=== PATIENT | female | born 1985 | race African-American/Black ===

== ENCOUNTER 2023-12-31 15:18 | Emergency (ER) | payer OTHER, SELFPAY ==
--- NOTE | ~2023-12-31 | XR_ITS ---
EXAMINATION: XR CHEST CLINICAL INFORMATION: Shortness of breath COMPARISON: None available. TECHNIQUE: Frontal view of the chest was obtained. FINDINGS: The cardiomediastinal silhouette is within normal limits. The lungs are well expanded. There is no focal consolidation, edema, or effusion. No pneumothorax. No acute osseous abnormality. XR/XR chest 1V IMPRESSION: No evidence of acute pulmonary process.
[2023-12-31 15:51] VITALS: BP 147/96; PULSE 76; RESP 22; TEMP 35.9; O2SAT 98; BMI 43.8
--- NOTE | 2023-12-31 15:51 | ED_ITS ---
HPI - General Adult General Chief complaint: Dyspnea Stated complaint: asthma diff breathing Time Seen by Provider: 12/31/23 16:16 Source: patient Mode of arrival: ambulatory Limitations: no limitations History of Present Illness HPI narrative: Patient is a 38-year-old female with history of asthma presenting to the emergency department with complaint of worsening shortness of breath over the past few days but acutely worsened over the past few hours. She states that she is currently out of her asthma inhalers and is almost out of her nebulized albuterol. Feel symptoms are likely related to seasonal allergies. She denies fevers. Denies chest pain or palpitations. MD complaint: Shortness of breath Onset (ago): day(s) Associated symptoms: denies other symptoms Treatments prior to arrival: other Related Data Previous Rx's ?Medication ?Instructions ?Recorded albuterol sulfate 2.5 mg/3 mL 2.5 mg (3 mL) inhalation Q4H PRN 12/31/23 (0.083 %) solution for nebulization shortness of breath or wheezing #75 mL albuterol sulfate 90 mcg/actuation 2 inh inhalation Q4-6H PRN 12/31/23 aerosol inhaler shortness of breath or wheezing #6.7 grams prednisone 20 mg tablet 40 mg (2 x 20 mg) PO DAILY #10 tabs 12/31/23 Allergies Allergy/AdvReac Type Severity Reaction Status Date / Time morphine Allergy Itching Verified 12/31/23 15:56 Review of Systems 2 Review of Systems: As per HPI. Yes all other systems are reviewed and are negative Constitutional: Constitutional: Reports as per HPI [facility] Social History Social History Advance Directives: No Advance Directives Information Provided: No Do you have a plan to hurt others: No Plan Physical Exam ED Vital Signs: Vital Signs - 24 hr 12/31/23 15:51 12/31/23 16:20 Temperature 96.7 F L Pulse Rate 76 72 Respiratory Rate 22 H 18 Blood Pressure 147/96 H Pulse Oximetry 98 Oxygen Delivery Method Room Air BMI result Body Mass Index 43.8 Vital signs have been reviewed and appear to be correct. Blood pressure elevated. Heart rate normal. Respiratory rate normal. Temperature normal. Oxygen saturation normal. Const General: cooperative, healthy appearing and no acute distress Orientation/consciousness: oriented to person, oriented to place, oriented to time and patient oriented x3 Limitations: no limitations HENMT Head: Yes normocephalic and Yes atraumatic Ears: external ears normal General nose exam: Normal external nose present Face and sinus: Yes face symmetric Mouth: oropharynx normal and moist mucous membranes Throat: Yes uvula midline Eyes Pupils: Equal, round and reactive pupils present Neck Neck: Yes normal visual inspection and Yes supple Resp Effort & Inspection: normal respiratory effort and not able to speak in complete sentences Auscultation: wheezes expiratory wheezes and throughout and diminished lung sounds diffuse Cardio Rate: regular rate Rhythm: regular rhythm Heart sounds: S1 normal heart sound present and S2 normal heart sound present GI Palpation (GI): Soft to palpation and nontender Auscultation: normoactive bowel sounds General: Yes no CVA tenderness Back/Spine/Pelvis Back: no CVA tenderness Skin General skin exam: elasticity normal and turgor normal Neuro General: oriented to person, oriented to place, oriented to time, patient oriented x3, moves all extremities, no focal motor deficits and CN's II-XI intact bilaterally Cranial nerves: Yes Equal, round and reactive pupils present Cognition (Neuro): normal cognition Extrem General: Yes full ROM, Yes no pedal edema and Yes no calf tenderness Psych Mental Status: mental status grossly normal Affect: normal affect Thought process: Normal thought process present Course Course Course Narrative: RME performed by Ninfa Mercer PA-C. Patient is a 38 year old assigned female at presenting to the emergency department with an asthma exacerbation. Patient states she was woken up out of her sleep with shortness of breath. Patient states that she has been using her nebulizer but it isn't helping. Detailed physical exam and review of systems are deferred to the preschool special education teacher. Imaging and swabs ordered. Charge nurse made aware. Medications Administered Discontinued Medications Generic Name Dose Route Start Last Admin Trade Name Freq PRN Reason Stop Dose Admin Albuterol Sulfate 2.5 mg/ 0 mg 12/31/23 16:13 12/31/23 16:18 Albuterol/Ipratropium 3 ml INHALE 12/31/23 16:14 5 dose ONCE ONE Administration Magnesium Sulfate/Dextrose 1 gm in 100 mls @ 100 mls/hr 12/31/23 15:52 12/31/23 16:16 Magnesium Sulfate/D5w IV 12/31/23 16:51 100 mls/hr ONCE ONE Administration Methylprednisolone Sodium Succinate 60 mg 12/31/23 15:52 12/31/23 16:15 Methylprednisolone Sod Succ 125 Mg/2 Ml Vial IVPUSH 12/31/23 15:53 60 mg ONCE ONE Administration Medical Decision Making Medical Decision Making [facility] Narrative: Patient is a 38-year-old female with history of asthma presenting to the emergency department with complaint of worsening shortness of breath over the past few days but acutely worsened over the past few hours. On exam patient is awake, A+Ox3, BP elevated, VS otherwise WNL, afebrile, normal neurological exam without focal deficits, physical exam findings as above. Given reported symptoms and physical exam findings, initial differential includes asthma exacerbation, viral illness, bronchitis, pneumonia. Labs notable for mild leukocytosis, no significant electrolyte abnormalities. X-ray chest notable for no evidence of pneumonia. My interpretation is in agreement with the radiologist's interpretation. Symptoms improved significantly after medications given in ED and breathing treatment administered by Respiratory therapy. Patient states she feels comfortable with discharge home at this time, feel patient is stable for discharge as her room air saturation is now 100% and she is able to speak easily in full sentences. Will send prescriptions for inhalers, prednisone, and advised patient to begin taking daily allergy medication such as cetirizine to decrease allergy symptoms. Instructed patient follow-up with primary care provider. Return precautions discussed at bedside. Patient verbalized understanding of and agreement plan. Differential Diagnosis Differential Diagnoses: The differential diagnosis associated with the presentation includes As per [facility]. Admission/Observation Consideration of admission/observation: Escalation of care including admission/observation considered Patient would have been admitted to the hospital had their work up had any findings where hospital admission was appropriate and their clinical presentation warranted hospital admission. Lab Data [facility] Lab Attestation statement: I reviewed the patient's lab results. As per MDM. 12/31/23 16:13 12/31/23 16:13 Labs: Lab Results 12/31/23 12/31/23 Range/Units 16:08 16:13 WBC 11.2 H (4.8-10.8) X10*3/uL RBC 4.81 (4.20-5.50) X10*6/uL Hgb 11.4 L (12.0-16.0) g/dl Hct 35.4 L (37.0-47.0) % MCV 73.6 L (80.0-98.0) fL MCH 23.7 L (27.0-33.0) pg MCHC 32.2 (31.0-35.0) g/dl RDW 16.4 H (11.0-16.0) % Plt Count 414 H (160-400) X10*3/uL MPV 8.5 L (9.4-12.3) fL Immature Gran % (Auto) 0.4 (0.0-0.4) % Neut % (Auto) 49.2 (45-73) % Lymph % (Auto) 38.1 (20-40) % [place] % (Auto) 6.2 (2-11) % Eos % (Auto) 5.7 H (0-4) % Baso % (Auto) 0.4 (0-2) % Lymph # (Auto) 4.3 (1.2-4.9) X10*3/uL [place] # (Auto) 0.7 (0.1-1.2) X10*3/uL Eos # (Auto) 0.6 H (0.0-0.4) X10*3/uL Baso # (Auto) 0.0 (0.0-0.2) X10*3/uL Abs Immat Gran (auto) 0.05 H (0.00-0.03) X10*3/uL Absolute Neuts (auto) 5.5 (2.0-8.3) x10*3/uL Absolute Nucleated RBC 0.000 (0.0-0.012) X10*3/uL Nucleated RBC % (auto) 0.0 (0.0-0.2) /100WBC Sodium 140 (135-145) mmol/L Potassium 4.2 (3.3-5.1) mmol/L Chloride 107 (96-108) mmol/L Carbon Dioxide 24 (22-29) mmol/L Anion Gap 13 (12-20) BUN 7 L (9-16) mg/dL Creatinine 0.78 (0.5-1.4) mg/dL Estim Creat Clear Calc 135.4 Estimated GFR > 60 Random Glucose 131 H (60-115) mg/dL Calcium 9.8 (8.4-10.2) mg/dL Magnesium 2.0 (1.6-2.6) mg/dL Total Bilirubin 0.2 (0.0-1.0) mg/dL AST 17 (5-31) U/L ALT 22 (0-31) U/L Alkaline Phosphatase 90 (39-117) U/L Total Protein 7.6 (6.5-8.0) g/dL Albumin 4.3 (3.5-5.0) g/dL Influenza Type A (PCR) NEGATIVE (Negative) Influenza Type B (PCR) NEGATIVE (Negative) RSV RNA Qual (PCR) NEGATIVE (Negative) SARS-CoV-2 RNA (RT-PCR) NEGATIVE (Negative) Independent Interpretation I performed an independent interpretation of an: Plain X-Ray Interpretation: No evidence of pneumonia on chest x-ray. Radiology Impression Discussion of test interpretation with radiology: I have reviewed the radiologist's reading. Radiologist Impression: XR/XR chest 1V IMPRESSION: No evidence of acute pulmonary process. External Record Review External record reviewed: Inpatient record, Office record and Outpatient record Prescription Management I considered prescription management with: Other Discharge Plan Discharge Clinical Impression: Asthma with exacerbation Patient Disposition: Home, Self-Care Instructions: Asthma (DC) Additional Instructions: You were evaluated in the emergency department today for shortness of breath. Your symptoms appear to be due to an acute asthma exacerbation. It is possible that this is being triggered by seasonal allergies and we recommend that he begin taking an ufuq-exf-oqmpiaz allergy medication such as cetirizine or loratadine daily. You are being given refills of your inhaler and albuterol for your nebulizer. You are also being prescribed a short course of prednisone to decrease inflammation. We recommend following up with your primary care provider within the next 2-3 days. Return to the emergency department or call 911 if you develop increasing shortness of breath or difficulty breathing, chest pain, dizziness or lightheadedness or any other concerning symptoms. Prescriptions: New prednisone 20 mg tablet 40 mg PO DAILY Qty: 10 0RF albuterol sulfate 90 mcg/actuation HFA aerosol inhaler 2 inh inhalation Q4-6H PRN (Reason: shortness of breath or wheezing) Qty: 6.7 0RF albuterol sulfate 2.5 mg /3 mL (0.083 %) solution for nebulization 2.5 mg inhalation Q4H PRN (Reason: shortness of breath or wheezing) Qty: 75 0RF Stand Alone Forms: Work/School Release Print Language: Hebrew
[2023-12-31] MEDS: methylPREDNISolone Sod Succ 125 MG/2 ML VIAL 60 MG IVPUSH (16:15)
[2023-12-31] MEDS: Magnesium Sulfate/D5W 1 GM/100 ML PIGGYBACK IV (16:16)
[2023-12-31] MEDS: Albuterol Sulfate 2.5 MG, Albuterol/Iprat 2.5/0.5MG 3 ML 3 ML INHALE (16:18)
[2023-12-31 16:19] LABS: MANUAL DIFF FLAG NO
[2023-12-31 16:20] VITALS: PULSE 72; RESP 18; O2SAT 100
[2023-12-31 16:21] LABS: Basophils Percent Auto 0.4 % (0-2); Eosinophils Absolute Auto 0.6 X10*3/uL (0.0-0.4); Eosinophils Percent Auto 5.7 % (0-4); Hematocrit 35.4 % (37.0-47.0); Hemoglobin 11.4 g/dl (12.0-16.0); Imm Gran Abs Auto 0.05 X10*3/uL (0.00-0.03); Imm Gran Pct Auto 0.4 % (0.0-0.4); Lymphocytes Absolute Auto 4.3 X10*3/uL (1.2-4.9); Lymphocytes Percent Auto 38.1 % (20-40); Mean Corpuscular HGB Conc 32.2 g/dl (31.0-35.0); Mean Corpuscular Hemoglobin 23.7 pg (27.0-33.0); Mean Corpuscular Volume 73.6 fL (80.0-98.0); Mean Platelet Volume 8.5 fL (9.4-12.3); Monocytes Absolute Auto 0.7 X10*3/uL (0.1-1.2); Monocytes Percent Auto 6.2 % (2-11); Neutrophils Absolute Auto 5.5 x10*3/uL (2.0-8.3); Neutrophils Percent Auto 49.2 % (45-73); Platelet Count 414 X10*3/uL (160-400); Red Blood Count 4.81 X10*6/uL (4.20-5.50); Red Cell Distribution Width 16.4 % (11.0-16.0); White Blood Count 11.2 X10*3/uL (4.8-10.8)
[2023-12-31 16:35] LABS: Alanine Aminotransferase 22 U/L (0-31); Albumin Level 4.3 g/dL (3.5-5.0); Alkaline Phosphatase 90 U/L (39-117); Anion Gap 13 (12-20); Aspartate Amino Transferase 17 U/L (5-31); Bilirubin Total 0.2 mg/dL (0.0-1.0); Blood Urea Nitrogen 7 mg/dL (9-16); Calcium 9.8 mg/dL (8.4-10.2); Carbon Dioxide 24 mmol/L (22-29); Chloride 107 mmol/L (96-108); Creatinine Clr Calc Pharmacy 135.4; Estimated Glomerular Filt Rate > 60; Glucose Random 131 mg/dL (60-115); Potassium 4.2 mmol/L (3.3-5.1); Sodium 140 mmol/L (135-145); Total Protein 7.6 g/dL (6.5-8.0)
[2023-12-31 17:01] LABS: Influenza A PCR NEGATIVE (Negative); Influenza B PCR NEGATIVE (Negative); Resp Syncy Virus RNA Qual PCR NEGATIVE (Negative); SARS COV2 PCR INHOUSE NEGATIVE (Negative)
[2023-12-31 18:09] VITALS: BP 138/95; PULSE 70; RESP 18; TEMP 36.7; O2SAT 100
== END 2023-12-31 18:10 | disposition home or self-care (01) ==
PROVIDERS: Physician Assistant Medical; Emergency Provider Emergency Medicine
DX: J45.901 Unspecified asthma with (acute) exacerbation (principal)
CPT/HCPCS: 0241U; 36415; 71045; 80053; 83735; 85025; 94640; 96374; 96375; 99283; 99284; J2919; J3475

== ENCOUNTER 2024-01-22 02:10 | Emergency (ER) | payer OTHER, SELFPAY ==
--- NOTE | ~2024-01-22 | XR_ITS ---
EXAMINATION: XR CHEST CLINICAL INFORMATION: Shortness of breath COMPARISON: 12/31/2023 TECHNIQUE: Frontal view of the chest was obtained. FINDINGS: Lung volumes are symmetric. There is central peribronchial thickening, increased from prior. No evidence of pneumothorax or significant pleural effusion. The cardiomediastinal contour is unremarkable. No acute osseous findings are seen. XR/XR chest 1V IMPRESSION: Central peribronchial thickening which may reflect airways disease/bronchitis.
[2024-01-22 02:14] VITALS: BP 151/97; PULSE 81; RESP 22; TEMP 35.7; O2SAT 97; BMI 44.2
[2024-01-22 02:38] LABS: Basophils Percent Auto 0.3 % (0-2); Eosinophils Absolute Auto 0.8 X10*3/uL (0.0-0.4); Eosinophils Percent Auto 6.7 % (0-4); Hematocrit 34.5 % (37.0-47.0); Hemoglobin 11.1 g/dl (12.0-16.0); Imm Gran Abs Auto 0.03 X10*3/uL (0.00-0.03); Imm Gran Pct Auto 0.3 % (0.0-0.4); Lymphocytes Absolute Auto 5.3 X10*3/uL (1.2-4.9); Lymphocytes Percent Auto 44.3 % (20-40); MANUAL DIFF FLAG SCAN; Mean Corpuscular HGB Conc 32.2 g/dl (31.0-35.0); Mean Corpuscular Hemoglobin 23.6 pg (27.0-33.0); Mean Corpuscular Volume 73.2 fL (80.0-98.0); Mean Platelet Volume 8.5 fL (9.4-12.3); Monocytes Absolute Auto 0.6 X10*3/uL (0.1-1.2); Monocytes Percent Auto 5.2 % (2-11); Neutrophils Absolute Auto 5.2 x10*3/uL (2.0-8.3); Neutrophils Percent Auto 43.2 % (45-73); Platelet Count 322 X10*3/uL (160-400); Red Blood Count 4.71 X10*6/uL (4.20-5.50); Red Cell Distribution Width 16.7 % (11.0-16.0); SCAN SMEAR FLAG 1; White Blood Count 11.9 X10*3/uL (4.8-10.8)
[2024-01-22 02:55] LABS: Anion Gap 14 (12-20); Blood Urea Nitrogen 13 mg/dL (9-16); Calcium 9.3 mg/dL (8.4-10.2); Carbon Dioxide 23 mmol/L (22-29); Chloride 106 mmol/L (96-108); Creatinine Clr Calc Pharmacy 109.2; Estimated Glomerular Filt Rate > 60; Glucose Random 202 mg/dL (60-115); Potassium 3.8 mmol/L (3.3-5.1); Sodium 139 mmol/L (135-145)
[2024-01-22 03:04] LABS: SLIDE REVIEW VERIFIED
--- NOTE | 2024-01-22 03:24 | ED_ITS ---
HPI - Asthma General Chief Complaint: Asthma Stated Complaint: Trouble breathing, asthmatic Time Seen by Provider: 01/22/24 03:10 History of Present Illness HPI Narrative: Patient is a 30-year-old female with a history of asthma presents today with shortness of breath wheezing. Patient from home. After the steroid tapers off patient's started having shortness of breath again. Positive history of smoking. Positive coughing. Patient from home. Never been intubated. Been admitted in the past Related Data Previous Rx's ?Medication ?Instructions ?Recorded albuterol sulfate 2.5 mg/3 mL 2.5 mg (3 mL) inhalation Q4H PRN 12/31/23 (0.083 %) solution for nebulization shortness of breath or wheezing #75 mL albuterol sulfate 90 mcg/actuation 2 inh inhalation Q4-6H PRN 12/31/23 aerosol inhaler shortness of breath or wheezing #6.7 grams prednisone 20 mg tablet 40 mg (2 x 20 mg) PO DAILY #10 tabs 12/31/23 albuterol sulfate 2.5 mg/3 mL 2.5 mg (3 mL) inhalation Q3-4H PRN 01/22/24 (0.083 %) solution for nebulization bronchospasm #90 mL prednisone 20 mg tablet 40 mg (2 x 20 mg) PO DAILY #10 tabs 01/22/24 Allergies Allergy/AdvReac Type Severity Reaction Status Date / Time morphine Allergy Itching Verified 01/22/24 02:16 Review of Systems 2 Review of Systems: Positive coughing positive shortness of breath Yes all other systems are reviewed and are negative [facility] Past Medical History Attestation statement: The following information was validated with the patient. Social History Social History Advance Directives: No Do you have a plan to hurt others: No Plan Physical Exam 2 Vital Signs: Vital Signs: Last Vital Signs Temp 96.3 F L 01/22/24 02:14 Pulse 83 01/22/24 03:34 Resp 18 01/22/24 03:34 BP 151/97 H 01/22/24 02:14 Pulse Ox 97 01/22/24 02:14 O2 Del Method Room Air 01/22/24 02:14 BMI result Body Mass Index 44.2 Appearance: Alert. Oriented X3. No acute distress. Eyes: Pupils equal, round and reactive to light. ENT: Pharynx normal. Neck: Normal inspection. Neck supple. No lymph nodes noted. No crepitus CVS: Normal heart rate and rhythm. Pulses normal. Normal S1 and S2 Respiratory: Positive bilateral wheezing noted Abdomen: Soft and nontender. No rigidity. No distention. good BS x4 Skin: Skin warm and dry. Normal skin color. Normal skin turgor. Extremities: No lower extremity edema. Neurovascular intact to all extremities. No Lacerations. No Rash Neuro: Oriented X 3. No motor deficit. No sensory deficit. Moving all extermities. No slurred speech Medications Administered Discontinued Medications Generic Name Dose Route Start Last Admin Trade Name Freq PRN Reason Stop Dose Admin Albuterol Sulfate 2.5 mg/ 0 mg 01/22/24 03:20 01/22/24 03:31 Albuterol/Ipratropium 3 ml INHALE 01/22/24 03:21 5 dose ONCE ONE Administration Prednisone 60 mg 01/22/24 03:18 01/22/24 03:38 Prednisone 20 Mg Tablet PO 01/22/24 03:19 60 mg ONCE ONE Administration Medical Decision Making Medical Decision Making [facility] Narrative: Patient is 38 years old presents today with having shortness of breath. Previously hospitalized in the past. Recently finished a steroid. Now feeling wheezing again. Patient was given steroid and a continuous nebulized treatment. Symptomatically feels much improved. Fell asleep. Patient monitored for an hour. Subsequently ambulated in the emergency department O2 sat maintained at 98. Lungs are much improved. Had a long discussion with patient joint decision was made to discharge patient home close follow-up on an outpatient basis explained to patient earlier to stop smoking patient states understanding she is currently in stable condition will discharge home. Differential Diagnosis Differential Diagnoses: The differential diagnosis associated with the presentation includes Asthma Admission/Observation Consideration of admission/observation: Escalation of care including admission/observation considered Lab Data [facility] Lab Attestation statement: I reviewed the patient's lab results. 01/22/24 02:33 01/22/24 02:33 Labs: Lab Results 01/22/24 01/22/24 Range/Units 02:33 03:41 WBC 11.9 H (4.8-10.8) X10*3/uL RBC 4.71 (4.20-5.50) X10*6/uL Hgb 11.1 L (12.0-16.0) g/dl Hct 34.5 L (37.0-47.0) % MCV 73.2 L (80.0-98.0) fL MCH 23.6 L (27.0-33.0) pg MCHC 32.2 (31.0-35.0) g/dl RDW 16.7 H (11.0-16.0) % Plt Count 322 (160-400) X10*3/uL MPV 8.5 L (9.4-12.3) fL Immature Gran % (Auto) 0.3 (0.0-0.4) % Neut % (Auto) 43.2 L (45-73) % Lymph % (Auto) 44.3 H (20-40) % [place] % (Auto) 5.2 (2-11) % Eos % (Auto) 6.7 H (0-4) % Baso % (Auto) 0.3 (0-2) % Lymph # (Auto) 5.3 H (1.2-4.9) X10*3/uL [place] # (Auto) 0.6 (0.1-1.2) X10*3/uL Eos # (Auto) 0.8 H (0.0-0.4) X10*3/uL Baso # (Auto) 0.0 (0.0-0.2) X10*3/uL Abs Immat Gran (auto) 0.03 (0.00-0.03) X10*3/uL Absolute Neuts (auto) 5.2 (2.0-8.3) x10*3/uL Absolute Nucleated RBC 0.000 (0.0-0.012) X10*3/uL Nucleated RBC % (auto) 0.0 (0.0-0.2) /100WBC Smear Tech's Comments VERIFIED Sodium 139 (135-145) mmol/L Potassium 3.8 (3.3-5.1) mmol/L Chloride 106 (96-108) mmol/L Carbon Dioxide 23 (22-29) mmol/L Anion Gap 14 (12-20) BUN 13 (9-16) mg/dL Creatinine 0.94 (0.5-1.4) mg/dL Estim Creat Clear Calc 109.2 Estimated GFR > 60 Random Glucose 202 H (60-115) mg/dL Calcium 9.3 (8.4-10.2) mg/dL Influenza Type A (PCR) NEGATIVE (Negative) Influenza Type B (PCR) NEGATIVE (Negative) RSV RNA Qual (PCR) NEGATIVE (Negative) SARS-CoV-2 RNA (RT-PCR) NEGATIVE (Negative) Independent Interpretation I performed an independent interpretation of an: EKG and Plain X-Ray (Grossly negative for any acute infiltrate) Radiology Impression Discussion of test interpretation with radiology: I have reviewed the radiologist's reading. Social Determinants History of smoking Discharge Plan Discharge Clinical Impression: Asthma with acute exacerbation Patient Disposition: Home, Self-Care Instructions: Asthma (DC) Prescriptions: New prednisone 20 mg tablet 40 mg PO DAILY Qty: 10 0RF albuterol sulfate 2.5 mg /3 mL (0.083 %) solution for nebulization 2.5 mg inhalation Q3-4H PRN (Reason: bronchospasm) Qty: 90 0RF No Action prednisone 20 mg tablet 40 mg PO DAILY Qty: 10 0RF albuterol sulfate 90 mcg/actuation HFA aerosol inhaler 2 inh inhalation Q4-6H PRN (Reason: shortness of breath or wheezing) Qty: 6.7 0RF albuterol sulfate 2.5 mg /3 mL (0.083 %) solution for nebulization 2.5 mg inhalation Q4H PRN (Reason: shortness of breath or wheezing) Qty: 75 0RF Referrals: Kate Davis DO [Primary Care Provider] - 2 days Print Language: Nigerien
--- NOTE | 2024-01-22 03:25 | PC.NURSE ---
pt presents to the ED from home d/t asthma exacerbation. hx asthma. pt recently seen in ED/prescribed take home meds. pt has had relief from meds upon until today when she started feeling increased/sob. wheezing noted throughout. on RA - sob/wob noted. respirations even/labored. xray results pending. plan of care ongoing.
[2024-01-22] MEDS: Albuterol Sulfate 2.5 MG, Albuterol/Iprat 2.5/0.5MG 3 ML 3 ML INHALE (03:31)
[2024-01-22 03:34] VITALS: PULSE 83; RESP 18; O2SAT 98
[2024-01-22] MEDS: predniSONE 20 MG TABLET 60 MG PO (03:38)
--- NOTE | 2024-01-22 03:39 | PC.NURSE ---
medication administered per provider order. pt receiving breathing treatment via RT at this time. swabs obtained by [employer].
[2024-01-22 04:22] LABS: Influenza A PCR NEGATIVE (Negative); Influenza B PCR NEGATIVE (Negative); Resp Syncy Virus RNA Qual PCR NEGATIVE (Negative); SARS COV2 PCR INHOUSE NEGATIVE (Negative)
[2024-01-22 05:46] VITALS: BP 135/87; PULSE 83; RESP 16; TEMP 36.7; O2SAT 95
[2024-01-22 05:48] VITALS: BP 135/87; PULSE 83; RESP 16; TEMP 36.7; O2SAT 95
== END 2024-01-22 05:49 | disposition home or self-care (01) ==
PROVIDERS: Emergency Provider Emergency Medicine Emergency Medical Services; PCP Internal Medicine
DX: R06.02 Shortness of breath (principal); R05.9 Cough, unspecified; Z03.818 Encounter for observation for suspected exposure to other biological agents ruled out; Z79.899 Other long term (current) drug therapy
CPT/HCPCS: 0241U; 36415; 71045; 80048; 85025; 94640; 99283; 99284

== ENCOUNTER 2024-02-04 21:27 | Emergency (ER) | payer OTHER, SELFPAY ==
--- NOTE | ~2024-02-04 | XR_ITS ---
EXAMINATION: XR CHEST CLINICAL INFORMATION: Shortness of breath. Cough. Asthma. COMPARISON: Chest x-ray January 22, 2024 TECHNIQUE: Frontal view of the chest was obtained. 9:45 PM FINDINGS: No significant abnormality is noted involving the heart, lungs, mediastinum, bony thorax or soft tissues. XR/XR chest 1V IMPRESSION: Unremarkable examination.
[2024-02-04 21:35] VITALS: BP 151/101; PULSE 86; RESP 20; TEMP 36.3; O2SAT 93; BMI 45.2
--- NOTE | 2024-02-04 21:39 | ECG_ITS ---
Test Reason : DSYSPNEA Blood Pressure : / mmHG Vent. Rate : 080 BPM Atrial Rate : 080 BPM P-R Int : 150 ms QRS Dur : 080 ms QT Int : 368 ms P-R-T Axes : 070 065 138 degrees QTc Int : 424 ms Normal sinus rhythm T wave abnormality, consider anterolateral ischemia Abnormal ECG No previous ECGs available Referred By: Generic ED Physician Electronically Signed By:Gianni Liang
--- NOTE | 2024-02-04 22:08 | ED_ITS ---
HPI - SOB/Dyspnea General Chief Complaint: Dyspnea Stated Complaint: asthma, trouble breathing Time Seen by Provider: 02/04/24 21:49 Source: patient Mode of arrival: ambulatory Limitations: no limitations History of Present Illness HPI Narrative: Patient is a 38-year-old female presents to the emergency department for evaluation of increasing shortness of breath. She reports over the past 2 weeks having recurrent asthma exacerbations. Prior to this she was only using albuterol rescue inhaler as needed. She states that she did a 5 day course of prednisone, felt better for a few days and then her symptoms returned. She was seen in this emergency department most recently 01/22/2024, again given a 5 day course of prednisone 40 mg daily, had improvement in symptoms for a few days before returning again. She endorses a dry nonproductive cough, tightness in her chest, orthopnea. She has trialed her home inhalers and nebulizers with only minimal improvement. She states that in the past she has benefitted from a longer taper from prednisone over a 2 week period. She does state that in June of last year she was diagnosed with new onset diabetes for which she is only taking metformin, she does not have the means to check her glucose levels at home. She denies fevers, chills, known sick contacts, neck pain, numbness or tingling of the extremities, lower extremity redness swelling or edema, personal history of DVT/PE. Related Data Previous Rx's ?Medication ?Instructions ?Recorded albuterol sulfate 2.5 mg/3 mL 2.5 mg (3 mL) inhalation Q4H PRN 12/31/23 (0.083 %) solution for nebulization shortness of breath or wheezing #75 mL albuterol sulfate 90 mcg/actuation 2 inh inhalation Q4-6H PRN 12/31/23 aerosol inhaler shortness of breath or wheezing #6.7 grams prednisone 20 mg tablet 40 mg (2 x 20 mg) PO DAILY #10 tabs 12/31/23 albuterol sulfate 2.5 mg/3 mL 2.5 mg (3 mL) inhalation Q3-4H PRN 01/22/24 (0.083 %) solution for nebulization bronchospasm #90 mL prednisone 20 mg tablet 40 mg (2 x 20 mg) PO DAILY #10 tabs 01/22/24 albuterol sulfate 2.5 mg/3 mL 2.5 mg (3 mL) inhalation Q4-6H PRN 02/04/24 (0.083 %) solution for nebulization shortness of breath or wheezing #180 mL fluticasone 100 mcg-salmeterol 50 1 inh inhalation BID #60 ea 02/04/24 mcg/dose blistr powdr for inhalation (Advair Diskus) Allergies Allergy/AdvReac Type Severity Reaction Status Date / Time morphine Allergy Itching Verified 02/04/24 21:37 Review of Systems 2 Review of Systems: Yes all other systems are reviewed and are negative [facility] Past Medical History Attestation statement: The following information was validated with the patient. Source: old records reviewed Social History Social History Advance Directives: No Advance Directives Information Provided: No Do you have a plan to hurt others: No Plan Physical Exam 2 Vital Signs: Vital Signs: Last Vital Signs Temp 97.3 F 02/04/24 21:35 Pulse 85 02/04/24 22:17 Resp 20 02/04/24 22:17 BP 151/101 H 02/04/24 21:35 Pulse Ox 93 02/04/24 21:35 O2 Del Method Room Air 02/04/24 21:35 BMI result Body Mass Index 45.2 Appearance: Alert.?Oriented to person, place and time. No acute distress.?Normal affect. Eyes: Pupils equal, round and reactive to light.? ENT: Pharynx normal.?? Neck: Normal inspection.? Neck supple.?? CVS: Heart sounds normal. Normal heart rate and rhythm.? Pulses normal.?? Respiratory: No respiratory distress.? Lung sounds with expiratory wheezing bilaterally Abdomen: Soft and non-tender. Normoactive bowel sounds. ? Skin: Skin warm and dry.? Normal skin color.? ?? Extremities: No lower extremity edema.? No calf ttp? Neuro: Moves all extremities spontaneously. Sensation intact bilaterally. Ambulates with normal steady gait. Course Reevaluation(s) Reevaluation #1: Patient reports improvement in symptoms after receiving DuoNeb updraft. On evaluation of her workup, I do note that she has T-wave inversions in anterolateral leads, no prior EKGs available for comparison, high sensitive troponin is below detectable limits in her chest pressure has been present for greater than 3 hours, I do not suspect that this is secondary to acute myocardial ischemia but rather respiratory status. Wells score is negative, unlikely pulmonary embolism. Discussed with patient, do not feel that she would be an ideal candidate for additional prednisone prescription particularly a prolonged 2 week course given her hyperglycemia and inability to monitor blood glucose at home, furthermore she has trialed to steroid courses which have not fully resolved her symptoms. At this time, I feel it most appropriate to start her on inhaled glucocorticoid and LABA; Advair. Patient was encouraged that she should follow-up with her primary care doctor, as she is requesting consultation with pulmonology, her PCP is through [facility]. At this time, she is speaking clear full sentences, no respiratory distress. Ambulatory O2 trial . I feel that she is stable for discharge home. Discussed worrisome signs and symptoms that would warrant re-evaluation in the emergency department. All questions answered. Medications Administered Discontinued Medications Generic Name Dose Route Start Last Admin Trade Name Freq PRN Reason Stop Dose Admin Albuterol Sulfate 2.5 mg/ 0 mg 02/04/24 22:14 02/04/24 22:17 Albuterol/Ipratropium 3 ml INHALE 02/04/24 22:15 5 dose ONCE ONE Administration Medical Decision Making Medical Decision Making [facility] Narrative: Patient is a 38-year-old female past medical history of asthma, type 2 diabetes, obesity presenting to emergency department for evaluation of recurrent concern for asthma exacerbation with shortness of breath and chest tightness. Overall she appears well, nontoxic, afebrile. She is without significant respiratory distress tachypnea, she arrived with room air O2 saturation 93%. Expiratory wheezing on evaluation. She received DuoNeb updraft with reported improvement in her symptoms. CXR today is without acute pathology no evidence infiltrate or consolidation. EKG revealing normal sinus rhythm with ventricular rate of 80, QTC 424, no ST elevation, no ST depression, T-wave inversion V3-V6, no prior EKG available for comparison, high sensitive troponin below detectable levels. CBC reveals a mild leukocytosis without left shift strict him or trauma was not given microcytic anemia does not meet transfusion criteria. VBG normal. No electrolyte derangement. No RICKY. Non-anion gap hyperglycemia of 256 Differential Diagnosis Differential Diagnoses: The differential diagnosis associated with the presentation includes (Asthma exacerbation, viral syndrome, ACS, PE) Admission/Observation Consideration of admission/observation: Escalation of care including admission/observation considered Lab Data [facility] Lab Attestation statement: I reviewed the patient's lab results. (See narrative above) 02/04/24 22:11 02/04/24 22:11 Labs: Lab Results 02/04/24 02/04/24 Range/Units 22:11 22:17 WBC 12.9 H (4.8-10.8) X10*3/uL RBC 4.56 (4.20-5.50) X10*6/uL Hgb 10.6 L (12.0-16.0) g/dl Hct 33.3 L (37.0-47.0) % MCV 73.0 L (80.0-98.0) fL MCH 23.2 L (27.0-33.0) pg MCHC 31.8 (31.0-35.0) g/dl RDW 17.8 H (11.0-16.0) % Plt Count 337 (160-400) X10*3/uL MPV 8.7 L (9.4-12.3) fL Immature Gran % (Auto) Cancelled Neut % (Auto) Cancelled Lymph % (Auto) Cancelled [place] % (Auto) Cancelled Eos % (Auto) Cancelled Baso % (Auto) Cancelled Lymph # (Auto) Cancelled [place] # (Auto) Cancelled Eos # (Auto) Cancelled Baso # (Auto) Cancelled Abs Immat Gran (auto) Cancelled Absolute Neuts (auto) Cancelled Absolute Nucleated RBC 0.000 (0.0-0.012) X10*3/uL Nucleated RBC % (auto) 0.0 (0.0-0.2) /100WBC Neutrophils % (Manual) 48 (45-73) % Band Neutrophils % 1 L (3-5) % Lymphocytes % (Manual) 46 H (20-40) % Monocytes % (Manual) 3 (2-11) % Eosinophils % (Manual) 2 (0-4) % Abs Neuts (Manual) 6.3 (2.0-8.3) X10*3/uL Lymphocytes # (Manual) 5.9 H (1.2-4.9) X10*3/uL Monocytes # (Manual) 0.4 (0.1-1.2) X10*3/uL Eosinophils # (Manual) 0.3 (0.0-0.4) X10*3/uL Platelet Estimate NORMAL (NORMAL) Plt Morphology Comment NORMAL RBC Morphology NORMAL Smear Tech's Comments MANUAL DIFF VBG pH 7.35 (7.32-7.43) VBG pCO2 43 mmHg VBG pO2 88 mmHg VBG HCO3 24 (22-26) mmol/L VBG O2 Saturation 96.0 % VBG Base Excess -0.9 mmol/L Sodium 141 (135-145) mmol/L Potassium 3.8 (3.3-5.1) mmol/L Chloride 107 (96-108) mmol/L Carbon Dioxide 22 (22-29) mmol/L Anion Gap 16 (12-20) BUN 9 (9-16) mg/dL Creatinine 0.86 (0.5-1.4) mg/dL Estim Creat Clear Calc 120.9 Estimated GFR > 60 Random Glucose 256 H (60-115) mg/dL Calcium 9.7 (8.4-10.2) mg/dL Troponin I High Sens < 2.7 (<3.5-17.0) ng/L Independent Interpretation I performed an independent interpretation of an: Plain X-Ray (No consolidation or infiltrate) Radiology Impression Discussion of test interpretation with radiology: I have reviewed the radiologist's reading. Radiologist Impression: XR/XR chest 1V IMPRESSION: Unremarkable examination. Discharge Plan Discharge Clinical Impression: Asthma with exacerbation Patient Disposition: Home, Self-Care Instructions: Asthma (ED) Additional Instructions: As discussed, take the Advair inhaler twice daily, use your albuterol inhaler and nebulizers only as needed for shortness of breath/wheezing. Follow-up closely with your primary care provider, and discussed referral to pulmonology. Return back to emergency department any new or worsening symptoms or concerns. Prescriptions: New albuterol sulfate 2.5 mg /3 mL (0.083 %) solution for nebulization 2.5 mg inhalation Q4-6H PRN (Reason: shortness of breath or wheezing) Qty: 180 0RF fluticasone propion-salmeterol [Advair Diskus] 100-50 mcg/dose blister with device 1 inh inhalation BID Qty: 60 0RF No Action prednisone 20 mg tablet 40 mg PO DAILY Qty: 10 0RF albuterol sulfate 2.5 mg /3 mL (0.083 %) solution for nebulization 2.5 mg inhalation Q3-4H PRN (Reason: bronchospasm) Qty: 90 0RF prednisone 20 mg tablet 40 mg PO DAILY Qty: 10 0RF albuterol sulfate 90 mcg/actuation HFA aerosol inhaler 2 inh inhalation Q4-6H PRN (Reason: shortness of breath or wheezing) Qty: 6.7 0RF albuterol sulfate 2.5 mg /3 mL (0.083 %) solution for nebulization 2.5 mg inhalation Q4H PRN (Reason: shortness of breath or wheezing) Qty: 75 0RF Referrals: Kate Davis DO [Primary Care Provider] - Print Language: [place]
[2024-02-04 22:17] VITALS: PULSE 85; RESP 20; O2SAT 98
[2024-02-04] MEDS: Albuterol Sulfate 2.5 MG, Albuterol/Iprat 2.5/0.5MG 3 ML 3 ML INHALE (22:17)
[2024-02-04 22:22] LABS: Hematocrit 33.3 % (37.0-47.0); Hemoglobin 10.6 g/dl (12.0-16.0); Mean Corpuscular HGB Conc 31.8 g/dl (31.0-35.0); Mean Corpuscular Hemoglobin 23.2 pg (27.0-33.0); Mean Platelet Volume 8.7 fL (9.4-12.3); Platelet Count 337 X10*3/uL (160-400); Red Blood Count 4.56 X10*6/uL (4.20-5.50); Red Cell Distribution Width 17.8 % (11.0-16.0); White Blood Count 12.9 X10*3/uL (4.8-10.8)
[2024-02-04 22:24] LABS: VBG Base Excess -0.9 mmol/L; VBG HCO3 24 mmol/L (22-26); VBG pCO2 43 mmHg; VBG pH 7.35 (7.32-7.43); VBG pO2 88 mmHg
[2024-02-04 22:35] LABS: Anion Gap 16 (12-20); Blood Urea Nitrogen 9 mg/dL (9-16); Calcium 9.7 mg/dL (8.4-10.2); Carbon Dioxide 22 mmol/L (22-29); Chloride 107 mmol/L (96-108); Creatinine Clr Calc Pharmacy 120.9; Estimated Glomerular Filt Rate > 60; Glucose Random 256 mg/dL (60-115); Potassium 3.8 mmol/L (3.3-5.1); Sodium 141 mmol/L (135-145)
[2024-02-04 22:40] LABS: Venous Blood Gas Refer to POC result
[2024-02-04 22:43] LABS: SLIDE REVIEW MANUAL DIFF
[2024-02-04 22:45] LABS: Troponin-I High Sensitivity < 2.7 ng/L (<3.5-17.0)
[2024-02-04 22:46] LABS: Band Neutrophils Percent 1 % (3-5); Eosinophils Absolute Manual 0.3 X10*3/uL (0.0-0.4); Eosinophils Percent Manual 2 % (0-4); Lymphocytes Absolute Manual 5.9 X10*3/uL (1.2-4.9); Lymphocytes Percent Manual 46 % (20-40); Monocytes Absolute Manual 0.4 X10*3/uL (0.1-1.2); Monocytes Percent Manual 3 % (2-11); Neutrophils Absolute Manual 6.3 X10*3/uL (2.0-8.3); Neutrophils Percent Manual 48 % (45-73)
[2024-02-04 22:48] LABS: RBC Morphology NORMAL
[2024-02-04 22:49] LABS: Platelet Estimate NORMAL (NORMAL); Platelet Morphology Comment NORMAL
[2024-02-04 23:40] VITALS: BP 160/61; PULSE 80; RESP 20; TEMP 36.6; O2SAT 98
--- NOTE | 2024-02-04 23:44 | PC.NURSE ---
pt pass ambulation trial O2 96-100% room air with ambulation, no distress, no inc work of breathing./ pt able to speak full sentences with ambulation. says she feels much better
[2024-02-04 23:48] VITALS: BP 160/61; PULSE 80; RESP 20; TEMP 36.6; O2SAT 98
== END 2024-02-04 23:49 | disposition home or self-care (01) ==
PROVIDERS: Nurse Practitioner Family; Emergency Provider Internal Medicine; PCP Internal Medicine
DX: J45.901 Unspecified asthma with (acute) exacerbation (principal); R06.02 Shortness of breath
CPT/HCPCS: 36415; 71045; 80048; 82803; 84484; 85007; 85027; 93005; 94640; 99283; 99284; 99285

== ENCOUNTER → 2024-02-04 21:39 | Outpatient (BNV) | payer OTHER, SELFPAY | PROVIDERS: Emergency Provider Internal Medicine; PCP Internal Medicine; Visit Provider Internal Medicine Cardiovascular Disease | DX: R06.00 Dyspnea, unspecified (principal); R94.31 Abnormal electrocardiogram [ECG] [EKG] | CPT/HCPCS: 93010 ==

== ENCOUNTER 2024-09-06 17:17 | Emergency (ER) | payer OTHER, SELFPAY ==
[2024-09-06 18:23] VITALS: BP 153/96; PULSE 65; RESP 18; TEMP 36.7; O2SAT 100; BMI 44.6
--- NOTE | 2024-09-06 18:24 | ED_ITS ---
HPI - Ear Problem General Chief complaint: Skin/Abscess/Foreign Body Stated complaint: rt side face swollen near the ear/inside ear pain Time Seen by Provider: 09/06/24 23:19 History of Present Illness ED Provider: Viviana SUN Narrative: The patient is a 38-year-old female with a history of type 2 diabetes who says that she has had painful swelling on the right side of her face just anterior to her right ear. She thought that this began is possibly some kind of a pimple. She feels that the swelling is getting bigger and extending towards her jaw. No pain with opening her jaw. No pain with swallowing. She is very certain she is not . Related Data Previous Rx's ?Medication ?Instructions ?Recorded albuterol sulfate 2.5 mg/3 mL 2.5 mg (3 mL) inhalation Q4H PRN 12/31/23 (0.083 %) solution for nebulization shortness of breath or wheezing #75 mL albuterol sulfate 90 mcg/actuation 2 inh inhalation Q4-6H PRN 12/31/23 aerosol inhaler shortness of breath or wheezing #6.7 grams prednisone 20 mg tablet 40 mg (2 x 20 mg) PO DAILY #10 tabs 12/31/23 albuterol sulfate 2.5 mg/3 mL 2.5 mg (3 mL) inhalation Q3-4H PRN 01/22/24 (0.083 %) solution for nebulization bronchospasm #90 mL prednisone 20 mg tablet 40 mg (2 x 20 mg) PO DAILY #10 tabs 01/22/24 albuterol sulfate 2.5 mg/3 mL 2.5 mg (3 mL) inhalation Q4-6H PRN 02/04/24 (0.083 %) solution for nebulization shortness of breath or wheezing #180 mL fluticasone 100 mcg-salmeterol 50 1 inh inhalation BID #60 ea 02/04/24 mcg/dose blistr powdr for inhalation (Advair Diskus) doxycycline monohydrate 100 mg 100 mg PO BID #14 caps 09/07/24 capsule levofloxacin 500 mg tablet 500 mg PO DAILY #7 tabs 09/07/24 Allergies Allergy/AdvReac Type Severity Reaction Status Date / Time morphine Allergy Itching Verified 09/06/24 18:25 Review of Systems Review of Systems: Yes all other systems are reviewed and are negative [facility] Social History Social History Advance Directives: No Advance Directives Information Provided: Yes Physical Exam Vital Signs: Vital Signs: Last Vital Signs Temp 98.0 F 09/06/24 18:23 Pulse 65 09/06/24 18:23 Resp 18 09/06/24 18:23 BP 153/96 H 09/06/24 18:23 Pulse Ox 100 09/06/24 18:23 O2 Del Method Room Air 09/06/24 18:23 BMI result Body Mass Index 44.6 Const: Other: The patient is awake, alert, pleasant, cooperative. Mental status is normal. She has some obvious mild swelling to the right side of her face anterior to the right ear but otherwise she does not appear acutely ill or toxic. HEENT: Other: There is soft tissue swelling in the preauricular area on the right side of the face generally. There is a very focal area of tenderness and swelling and fluctuance anterior to the right tragus. There is some generalized swelling along the right side of the face anterior to the ear. There is no drainage from the right external auditory canal. I do not feel there is any definite edema to the canal although there is tenderness with palpation of the tragus. Tympanic membrane itself looks normal. Eyes: General: appearance normal, both eyes and all related structures Neck: Neck: Yes full ROM Resp: Effort & Inspection: normal respiratory effort Skin: Other: There is some soft tissue swelling to the preauricular skin of the right side of the face and there is one very prominent area of swelling, tenderness, and fluctuance anterior to the tragus. Neuro: Other: The patient is awake and alert with a normal mental status. Cranial nerves are intact. She moves her extremities normally. Course Course Course Narrative: This is a Rapid Medical Examination (RME) performed by Callie Jaramillo PA-C in triage. Full HPI, ROS, assessment and treatment plan per primary provider in the Main ED. 38 yo female with history of DM2 presenting for right ear pain and swelling that started last week. she reports a bump inside of her ear last week that has since gotten worse. swelling and pain are extending into the face and jaw now. no drainage or hearing loss. exam right preauricular swelling and tenderness, fluctuance c/w an abscess. Plan: I&D Procedures Abscess I/D Site: face (Anterior to the right ear/tragus) Side (if applicable): right Local Anesthetic: lidocaine 1% Amount of anesthesia used (mL): 1.5 Technique: incised with blade Amount of fluid expressed (mL): 3 Sent for culture/gram staining?: Yes Irrigation: No Packing used?: none Medical Decision Making Medical Decision Making MDM Narrative: The patient is a 38-year-old female with right-sided facial pain anterior to the right ear. She seems to have a focal area of swelling. I have used an ultrasound to evaluate this area of swelling and there was an obvious superficial fluid collection. There was also a deeper collection which I suspect was confluent with the superficial collection. I explained to the patient that there was an abscess collection for which I recommended a drainage procedure. The patient verbally consented. I then prepped the skin anterior to the right ear with Betadine. The head was draped with sterile drapes. I used a 30 gauge needle to inject 1% lidocaine around the area of maximal swelling. Then used a 11. Blade to make an incision which caused a release of some pus. There was some free-flowing pus but there was also some very thick sebaceous material as well. The pus was foul-smelling. I applied pressure and used forceps to assist in drainage. A sample of the pus was sent for routine culture. The patient tolerated the procedure well. The patient will be started on doxycycline in case of a MRSA infection. The patient will also be started on levofloxacin. Given the proximity to the external ear I felt that coverage for Pseudomonas was not unreasonable. Bacitracin was ordered to be applied to the site of the incision. The patient will be discharged with instructions to use warm compresses and to follow up with her PCP. She was also given the contact information for our ENT office. Discharge Plan Discharge Clinical Impression: Abscess of face Patient Disposition: Home, Self-Care Instructions: Abscess Follow-up (ED), Abscess Incision and Drainage (DC) Additional Instructions: You had a small abscess in the tissue in front of your right ear. This was incised and drained of fairly thick pus. You has been started on 2 antibiotics, doxycycline and levofloxacin. Please take the doxycycline 2 times a day, next dose later this morning on Thursday. The dose after that would be in Thursday evening. Please take the levofloxacin once a day, take your next dose of this medication on Thursday evening. Keep the wound site clean and dry and apply a topical antibiotic like bacitracin 2 times a day. Apply warm compresses to the side of your face several times a day as well. Please contact your regular doctor's office to see if they can see you and a follow up appointment in the next couple of days for a recheck. I have sent a wound culture from the pus that came out of the abscess and, based on the results of the culture, you may be able to stop 1 of the antibiotics you were prescribed. I have also provided the number for an ENT doctor at this hospital if the ear remained significantly uncomfortable. Return to the emergency room if you feel things are significantly worse at any time. Prescriptions: New levofloxacin 500 mg tablet 500 mg PO DAILY Qty: 7 0RF doxycycline monohydrate 100 mg capsule 100 mg PO BID Qty: 14 0RF No Action prednisone 20 mg tablet 40 mg PO DAILY Qty: 10 0RF albuterol sulfate 2.5 mg /3 mL (0.083 %) solution for nebulization 2.5 mg inhalation Q3-4H PRN (Reason: bronchospasm) Qty: 90 0RF albuterol sulfate 2.5 mg /3 mL (0.083 %) solution for nebulization 2.5 mg inhalation Q4-6H PRN (Reason: shortness of breath or wheezing) Qty: 180 0RF fluticasone propion-salmeterol [Advair Diskus] 100-50 mcg/dose blister with device 1 inh inhalation BID Qty: 60 0RF prednisone 20 mg tablet 40 mg PO DAILY Qty: 10 0RF albuterol sulfate 90 mcg/actuation HFA aerosol inhaler 2 inh inhalation Q4-6H PRN (Reason: shortness of breath or wheezing) Qty: 6.7 0RF albuterol sulfate 2.5 mg /3 mL (0.083 %) solution for nebulization 2.5 mg inhalation Q4H PRN (Reason: shortness of breath or wheezing) Qty: 75 0RF Referrals: Kate Davis DO [Primary Care Provider] - (facial abscess anterior to right ear) Luke Bruner [Physician] - (pre-tragal abscess) Print Language: Nepali
--- NOTE | 2024-09-07 00:14 | PC.NURSE ---
provider into assess and drain abscess, no sign of distress, reviewed discharge instructions with pt. pt verbalized understanding,
[2024-09-07 00:21] VITALS: BP 140/90; PULSE 53; RESP 19; O2SAT 97
[2024-09-07] MEDS: Bacitracin Oint 0.9 GM PACKET 1 APPL TOPICAL (00:25)
[2024-09-07] MEDS: Lidocaine HCl 1 % MPF 5 ML VIAL INFILTRATI (00:25)
[2024-09-07] MEDS: Doxycycline Monohydrate 100 MG CAPSULE PO (00:25)
[2024-09-07] MEDS: Acetaminophen 325 MG TABLET 650 MG PO (00:25)
[2024-09-07] MEDS: levoFLOXacin 750 MG TABLET PO (00:25)
[2024-09-07 00:32] VITALS: BP 140/90; PULSE 53; RESP 19; TEMP 36.7; O2SAT 97
== END 2024-09-07 00:33 | disposition home or self-care (01) ==
PROVIDERS: Emergency Provider Emergency Medicine; PCP Internal Medicine
DX: L02.01 Cutaneous abscess of face (principal); Z79.899 Other long term (current) drug therapy
CPT/HCPCS: 10060; 87070; 87147; 87205; 99284; J2003

== ENCOUNTER 2024-12-02 08:22 | Outpatient (AMB) | payer OTHER, SELFPAY ==
--- OUTSIDE RECORDS SUMMARY | 2024-12-02 08:39 | XMS_ITS | Clinical Summary ---
Author Organization [address] [facility] Building Address [address] [place] [address] Phone Care Team Providers Care Product Evangelist Name Role Phone Kate Davis DO Primary Care Provider [phone] Allergies Active Allergy Reactions Criticality Noted Date Comments Morphine Hives Medium 01/21/2020 Medications hydrOXYzine HCL (ATARAX) 10 mg tablet Take 1 tablet (10 mg total) by mouth 2 (two) times a day if needed for anxiety. Active metFORMIN XR (GLUCOPHAGE-XR) 500 mg 24 hr tablet Take 1 tablet (500 mg total) by mouth 1 (one) time each day with breakfast. 30 each 06/29/2024 Active sertraline (ZOLOFT) 50 mg tabletIndication s:Anxiety disorder, unspecified TAKE 1 TABLET BY MOUTH EVERY DAY 90 tablet 1 07/08/2024 Active amLODIPine (NORVASC) 2.5 mg tablet TAKE 1 TABLET BY MOUTH 1 TIME EACH DAY. 90 tablet 1 09/07/2024 Active Active Problems Problem Noted Date Diagnosed Date Asthma 06/29/2024 Severe obesity ([facility] V24, [facility] V28) 2023 Weight gain 06/29/2024 Type 2 diabetes mellitus wit h obesity ([facility] V24, [facility] V28) 08/28/2023 Anxiety and depression 06/03/2023 Mild intermittent asthma without complication Disease due to severe acute respiratory syndrome coronavirus 2 (SARS-CoV-2) 11/02/2022 Overview (06/29/2024): Problem added by Discern Expert Immunizations Name Administration Dates Next Due Influenza Quadravalent, MDCK , 0.5ml, preservative free (Flucelvax) 6mo and older 08/28/2023 Influenza trivalent, with pr eservative (Fluzone; Afluria) 6mo and older 09/23/2018 Pneumococcal polysaccharide 23 valent (Pneumovax 23) 2yo and older 09/23/2018 Tdap Tetanus diptheria acell ular pertussis (Boostrix; Adacel) 7yo and older 08/28/2023 Surgical History Surgery Date Site/Laterality Comments SECTION PROCEDURE: HISTORICAL DELIVERY Medical History Medical History Date Comments Depression DX:Depression Anxiety disorder DX:Anxiety diso rder Mild intermittent asthma, uncomplicated DX:Mild intermittent asthma, uncomplicated Family History Medical History Relation Name Comments Depression Brother Schizophrenia Brother Other: myocardial infarction Father Depression Mother Diabetes Mother Heart failure Mother Hyperlipidemia Mother Hypertension Mother Other: heart disease Mother Stroke Mother Relation Name Status Comments Brother Father Mother Social History Tobacco Use Types Packs/Day Years Used Date Smoking Tobacco: Every Day Cigarettes 0.5 27.3 Started: 08/17/1997 Smokeless Tobacco: Never Tobacco Cessation:Ready to Q uit: No; Counseling Given: No Alcohol Use Standard Drinks/Week Comments Yes 1 (1 standard drink = 0.6 oz pur e alcohol) Comments No Sex and Gender Information Value Date Recorded Sex Assigned at Not on file Legal Sex Female 9:37 AM EST Gender Identity Not on file Sexual Orientation Not on file Obstetrics History Last Filed Vital Signs Vital Sign Reading Time Taken Comments Blood Pressure 126/94 06/29/2024 11:53 AM EST Pulse 63 06/29/2024 11:53 AM EST Temperature - - Respiratory Rate - - Oxygen Saturation - - Inhaled Oxygen Concentration - - Weight 125 kg (275 lb 11.2 oz) 06/29/2024 11:46 AM EST Height 167.6 cm (5' 6 ) 06/29/2024 11:46 AM EST Body Mass Index 44.5 06/29/2024 11:46 AM EST Plan of Treatment Health Maintenance Due Date Last Done Comments Diabetes: Annual Foot Exam 1995 Diabetes: Annual Retina Eye Exam 1995 Hepatitis B Vaccines (1 of 3 - 19+ 3-dose series) 2004 Cervical Cancer Screening: P ap Smear 2006 Pneumococcal Vaccine: Pediatrics (0 to 5 Years) and At-Risk Patients (6 to 64 Years) (2 of 2 - PCV) 09/23/2019 09/23/2018 Diabetes: Annual GFR (Glomerular Filtration Rate) 01/20/2021 01/21/2020 Depression Screening 07/20/2022 HIV Screening 07/20/2022 Hepatitis C Screening 07/20/2022 Social Influencers of Health Screening 07/20/2022 Diabetes: Annual Urine Albumin-Creatinine Ratio (uACR) 10/01/2023 Diabetes: Blood Sugar Contro l Test (HGBA1C) 02/26/2024 08/28/2023 COVID-19 Vaccine (1 - 2023-2 5 season) 2024 Influenza Vaccine (Season Ended) 2025 08/28/2023, 09/23/2018 Cholesterol Screening (Lipid Panel) 06/05/2028 06/05/2023 DTaP,Tdap,and Td Vaccines (2 - Td or Tdap) 08/28/2033 08/28/2023 HIB Vaccines Aged Out No longer eligi ble based on patient's age to complete this topic HPV Vaccines Aged Out No longer eligi ble based on patient's age to complete this topic Hepatitis A Vaccines Aged Out No long er eligible based on patient's age to complete this topic IPV Vaccines Aged Out No longer eligi ble based on patient's age to complete this topic MMR Vaccines Aged Out No longer eligi ble based on patient's age to complete this topic Meningococcal ACWY Vaccine Aged Out N o longer eligible based on patient's age to complete this topic Meningococcal B Vaccine Aged Out No l onger eligible based on patient's age to complete this topic RSV Immunization Patients Under 20 months Aged Out No longer eligible b ased on patient's age to complete this topic Varicella Vaccines Aged Out No longer eligible based on patient's age to complete this topic Procedures Procedure Name Priority Date/Time Associated Diagnosis Comments HEMOGLOBIN A1C Routine 08/28/2023 LIPID PANEL Routine 06/05/2023 from Last 3 Months or Most Recently Relevant to Health Maintenance Results * Hemoglobin A1c (08/28/2023) Hemoglobin A1C 7.0 % Blood Venous blood specimen / Unknown [facility] BLOOD ORDERABLES Final Resul t * Lipid panel (06/05/2023) LDL/HDL Ratio 4 Triglycerides 179 mg/dL Cholesterol 198 mg/dL HDL 47 mg/dL LDL Cholesterol 116 mg/dL Blood Venous blood specimen / Unknown [facility] BLOOD ORDERABLES Final Resul t from Last 3 Months or Most Recently Relevant to Health Maintenance Insurance [facility] Care Teams Product Evangelist Relationship Specialty Start Date End Date Kate Davis DO [address] [place] [address] PCP - General 03/10/23
--- OUTSIDE RECORDS SUMMARY | 2024-12-02 08:39 | XMS_ITS | Data Portability ---
Author Organization [facility], [address] Address [address] [place] [address] Assessment No assessment recorded. Plan of Treatment Reminders Order Date Submit Date Provider Last Modified By Organization Details Last Modified Time Details Appointments None recorded. Lab rapid strep group A, throat 2022 023 [place] [address], [address] [place] [address], [address], 3 13:01:02 rapid flu (A+B) 2022 023 [place] [address] [facility], [address] [place] [address], [address], 3 13:01:02 rapid SARS CoV 2 Ag, QL IA, respiratory specimen 2022 023 [place] [address] [facility], [address] [place] [address], [address], 3 13:01:02 streptococc us group A, culture, throat 2022 023 [facility], [address] [place] [address], [place], [address], 3 12:06:31 Referral None recorded. Procedures None recorded. Surgeries None recorded. Imaging None recorded. Medication Orders amoxicillin 875 mg tablet 2022 023 [place] [address] [id number], [address] [place], [address], 15:00:51 Patient TargetsNo targets recorded. Patient Instructions Encounter Date Encounter Id Patient Instructions Last Modified By Organization Details Last Modified Time 09/09/2022 [id number] sore throat: car e instructions [email or web address] Not available 09/09/2022 13:01:02 Reason for Referral None Reported. Results Created Date Observation Date Name Description Value Unit Range Abnormal Flag Note LastModifiedBy Organization Detail LastModifiedTime 09/09/1909/11/2022 BETA STREP GP A CULTU RE beta strep gp A culture COMMEN T abnormal Beta- hemol ytic colon ies, not group A Strep tococ cus isola lesvia. Refer ence Range : Negat merlin Penic illin and ampic illin are drugs of choic e for treat ment of beta- hemol ytic strep tococ elaine infec tions . Susce ptibi lity testi ng of penic illin s and other beta- lacta m agent s appro henrry by the FDA for treat ment of beta- hemol ytic strep tococ elaine infec tions need not be perfo rmed routi robert becau se nonsu scept ible isola ana are extre sherri rare in any beta- hemol ytic strep tococ cus and have not been repor lesvia for Strep tococ cus pyoge marcus (grou p A). (CLSI ) Not Available [facility] ([facility]) [address] [facility], [place], [address], 09/11/2022 12:06:31 09/09/1909/09/2022 rapid SARS CoV 2 Ag, QL IA, respi rator y speci men Unknown Analyte Normal =Negat merlin Not Available [facility] [address] [place] [address] [place], [address], 09/09/2022 12:38:16 09/09/1909/09/2022 rapid SARS CoV 2 Ag, QL IA, respi rator y speci men Unknown Analyte negati ve Not Available [facility] [address] [place] [address] [place], [address], 09/09/2022 12:38:16 09/09/19 23 09/09/2022 rapid flu (A+B) Unknown Analyte Normal = Negati ve Not Available [address] [place] [address], [place], [address], 09/09/2022 12:38:11 09/09/19 23 09/09/2022 rapid flu (A+B) Unknown Analyte Normal = Negati ve Not Available [address] [place] [address], [place], [address], 09/09/2022 12:38:11 09/09/19 23 09/09/2022 rapid flu (A+B) Unknown Analyte negati ve Not Available [address] [place] [address] [place], [address], 09/09/2022 12:38:11 09/09/19 23 09/09/2022 rapid flu (A+B) Unknown Analyte negati ve Not Available [address] [place] [address], [place], [address], 09/09/2022 12:38:11 09/09/19 23 09/09/2022 rapid strep group A, throa t Unknown Analyte Normal = Negati ve Not Available [address] [place] [address] [place], [address], 09/09/2022 12:35:17 09/09/19 23 09/09/2022 rapid strep group A, throa t Unknown Analyte negati ve Not Available [address] [place] [address] [place], [address], 09/09/2022 12:35:17 Result Notes None recorded. Problems Name Problem SNOMED Code Status Onset Date Resolution Date Notes Provider Name and Address Organization Details Recorded Time Asthma 345684221 Active 023 MARGIE Cano [facility] 09/09/2022 12:36:50 Problem Notes None recorded. Procedures Surgical History Date Name Laterality Status Provider Name and Address Organization Details Recorded Time section completed KELVIN SHAH MARGIE Huntley [facility] 09/09/2022 12:38:03 Imaging Results None recorded. Procedure Notes None recorded. Medical Equipment None Reported. Allergies Allergen ID Allergen Name Allergen Category Reaction Reaction Severity Criticality Documentation Date Start Date Code Code System Note Provider Name and Address Organization Details Recorded Time 987218 morphine medicatio n itching Not available Not available 09/09/2022 7052 RxNorm EKLVIN kraft MARGIE [facility] 12:36:26 Medications Name Sig Start Date Stop Date Status Note LastModified by Organization Details LastModified Time albuterol sulfate 2.5 mg/3 mL (0.083 %) solution for nebulizatio n INHALE 1 VIAL VIA NEBULIZER EVERY 4 TO 6 HOURS NEEDED FOR DYSPNEA active Not Available Not Available No t Available prednisone 20 mg tablet TAKE 2 TABLETS BY MOUTH EVERY DAY 09/09 completed Not Available Not Available Not Available amoxicillin 875 mg tablet Take 1 tablet every 12 hours by oral route for 10 days. 2022 active Not Available Not Available Not Avai lable ProAir HFA 90 mcg/actuati on aerosol inhaler INHALE 2 TO 4 PUFFS INTO LUNGS EVERY 6 HOURS NEEDED FOR DYSPNEA active Not Available Not Available No t Available Vitals Date Recorded Body height Body mass index (BMI) Body weight Respiratory rate Oxygen saturation Oxygen saturation in Arterial blood by Pulse oximetry Heart rate Body temperature Systolic blood pressure Diastolic blood pressure Provider Name and Address Organization Details Last Updated DateTime 167.64 cm 43.6 kg/m2 094198. 94 g 20 /min 100 % 100 % 66 /min 98.3 [degF] 137 mm[Hg] 87 mm[Hg] KELVIN [facility] 12:39:13 Social History Question Answer Notes LastModified by Organizat ion Details LastModified Time Tobacco Smoking Status Current Every Day Smoker KELVIN SHAH abena MARGIE [facility] 09/09/2022 12:37:51 What Is Your Level Of Alcohol Consumption? Occasional [email or web address] Information not available 09/09/2022 Which Illicit Or Recreational Drugs Have You Used? Marijuana [email or web address] Information not available 09/09/2022 How Much Tobacco Do You Smoke? 1 PPW [email or web address] Information not available 09/09/2022 Do You Use Any Illicit Or Recreational Drugs? Yes [email or web address] Information not available 09/09/2022 Have You Recently Traveled Abroad? No Information not available 09/09/2022 Do You Or Have You Ever Used Any Other Forms Of Tobacco Or Nicotine? No Information not available 09/09/2022 Sex: Unknown Functional Status None recorded. Mental Status None recorded. Family History Relationship Description Onset Age of this Age Resolved Age Notes LastModified by Organization Details LastModified Time Father No current problems or disability [email or web address] Not available 09/09 12:36:55 Mother No current problems or disability [email or web address] Not available 09/09 12:36:55 Medical History No medical history recorded. Gynecological HistoryNo gynecological history recorded. Obstetrics History GPAL:G 0 P 0 0 0 0 Past Encounters Encounter ID Performer Location Encounter Start Date Encounter Closed Date Diagnosis/Indication Diagnosis SNOMED-CT Code Diagnosis ICD10 Code Diagnosis Note [id number] [address] [place] [address] 10/19/2021 14:27:12 10/19/2021 15:02:29 [id number] [address] [place] [address] 10/20/2020 12:10:23 10/20/2020 12:44:54 [id number] [address] [place] [address] 02/14/2021 19:21:57 02/14/2021 19:57:59 [id number] [address] [place] [address] 02/26/2020 12:45:49 02/26/2020 13:51:44 [id number] [place] [address] [address] 09/09/2022 12:03:34 09/09/2022 13:15:22 Acute pharyngitis 562314443 J02.9 Health Concerns Section Related Observation LastModified by Organization Detai ls LastModified Time None Recorded Concern Status LastModified by Organization Details LastModified Time None Recorded Advance Directives Directive None Recorded Payers Encounter Date Sequence Insurance Name Policy Number Policy Cook Covered Member ID Cook Member ID Guarantor Name 02/26/2020 1 [facility] [employer] (MEDICAID HMO) [place] Tamanna D Rodarte [id number] Tamanna Rodarte 10/20/2020 1 [facility] PL[facility] (MEDICAID HMO) [place] Tamanna D Rodarte [id number] Tamanna Rodarte 02/14/2021 1 [facility] PL[employer] (MEDICAID HMO) [place] Tamanna D Rodarte [id number] Tamanna Rodarte 10/19/2021 1 [facility] [employer] (MEDICAID HMO) [place] Tamanna D Rodarte [id number] Tamanna Rodarte 09/09/2022 1 [facility] PL[facility] (MEDICAID HMO) [place] Tamanna D Rodarte [id number] Tamanna Rodarte Notes Date Note Type Note Provider Name and Address Organization Details Recorded Time 09/09/2022 text/html Sore throatRepor lesvia bypatient.Notes:star lesvia last night Mariah Arrieta MD [address] [place], [address], [place] - [facility] 09/09/2022 15:00:57 OBGyn Episode No OBEpisode recorded.
--- NOTE | 2024-12-02 12:52 | A.OFFVIS_ITS ---
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35pm ?I spent 40 minutes speaking with the patient on the phone plus an additional 5 minutes reviewing and updating records for a total of 45 minutes HPI Comments Details: Previous weight loss efforts: self diets and exercise Wakes up: 7am, Sleeps: 9pm Breakfast: skips Lunch: 12pm (bagel, chicken) Dinner: 7pm (chicken, starch, vegetables) Snacks: 10am (muffin), 3pm (yogurt) Exercise: Gym membership Beverages: Coffee (1-2 cups/d with oatmilk and sugar, or [employer]), tea:2/wk, soda:none, juice: (apple or orange juice): daily, ETOH: none PFSH Medical History (Updated 12/02/24 @ 12:56 by Paramjit Huizar MD) Anxiety Depression Hypertension Asthma Non-insulin dependent type 2 diabetes mellitus Morbid obesity Surgical History (Updated 11/28/24 @ 09:00 by SARAH Bobby) History of section Social History (Updated 11/28/24 @ 09:02 by SARAH Bobby) Alcohol intake: current Alcohol intake frequency: holidays/special occasions only Patient Tobacco Use Status: Current someday Tobacco user Substance Use Type: Marijuana Telehealth Telehealth Telehealth Platform: Telephone Location of provider rendering services: practice address Location of patient: address on file Patient Identification confirmed using: Name, : Yes Telehealth method: voice only Patient verbally consented to treatment: Yes Patient verbally consented to billing insurance company: Yes Patient informed of any privacy concerns related to visit: Yes Minutes spent on Phone/Video with Pt.: 45 Assessment & Plan Assessment & Plan (1) Morbid obesity: Code(s): E66.01 - Morbid (severe) obesity due to excess calories Category: Medical Plan: 1.? Plan for lap sleeve gastrectomy. If diaphragmatic or ventral hernias are present at time of surgery, these will be repaired laparoscopically as well. I emphasized the importance of close follow-up, adherence to instructions and good communication. The surgery does not replace the need to change your lifestlyle which is the cause of the obesity problem. The surgery provides the motivation to try again to change your lifestyle, it reduces the appetite and make the transition to a better lifestyle easier and doubles the amount of weight you would lose compared to doing the lifestyle change without the surgery. You will need to be on a liquid diet with protein shakes for 2 weeks before surgery to maximize weight loss and boost your nutritional status to recover better from surgery and also for the first two weeks after surgery to let the stomach heal before we introduce other foods. After the first 2 weeks we will introduce protein bars and soft foods like scrambled eggs, cottage cheese and yogurt and after the 6th week will introduce meat, fish and cooked vegetables in small amounts. Over time you should be able to eat everything in small amounts. Side effects like nausea, vomiting, heartburn or abdominal pain are not common in the practice unless you are not following in the practice. This operation requires lifetime commitment to following in our practice and communication with me. You will much less weight and experience side effects if you don?t communicate or not following in the practice. Complications are rare and in our practice is about 1/10 of the national average. However, you can develop bleeding that may require transfusion (hasn?t happened for year in the practice), you may from complications (we did not have any deaths in the practice) and infections. Infections are usually a result of breakdown in communication or not understanding or following directions correctly. They are difficult to treat, they can happen during the first 6 weeks, they may require to be in the hospital for weeks or even months, not being able to eat by mouth and you may have drains and surgeries to try and correct the issue. Other risks and complications include possible conversion to an open procedure, leaks, small bowel obstruction, blood clots, cardiac, or pulmonary complications, as intermission coordinator complications such as ulcers, insufficient weight loss and vitamin deficiencies. 2. You will receive a link of our software linda to generate an individualized nutritional and exercise plan specific for you. Please send me a screenshot of the plans you will generate Meal to include lean meat (beef, fish, pork, turkey, chicken), or english yogurt, or egg whites, or beans with a salad with olive oil and fruits (berries, pears, apples, kiwi). Avoid salt, breads, potatoes, rice, pasta, desserts. ?3. If you choose shakes, each shake would be drunk slowly, like coffee in a period of 2 hours. ?4. If you choose bars, cut each bar in 4 pieces and eat each piece in 30min ?to make each bar last 2 hours. ?5. I emphasized the importance of measuring accurately the food portion and measure it when serving the food in plate ?6. The meal portions include a specific number of forks of meat and salad. You always eat the meat portion but you can replace up to half of salad/vegetables portion with rice, potatoes or pasta, or a fruit ?if you like. The less you do it the better weight loss will be. ?7. One full-size fork is what it can be scooped on the fork without falling aside and not what can be bit with the fork. Use regular forks like those you find in a typical restaurant. ?8.? Please buy the body composition scale we discussed and send me weight measurements as soon as possible and then once a week. Always include your diet and exercise plan. 9. The best choice would be to purchase a stationary bike, elliptical or treadmill at home that can track calories. Let me know if you do so I can give you an exercise plan. Alternatively you can go to the gym and do it there. You can create and exercise plan with the [employer] linda. ?10.?It is important of avoiding and for at least 18 months postoperatively and has been discussed at the infosession. ?11. Goal is to lose at least 1.5-2lbs per week ?12. Goal to lose 10% of your weight before surgery, which is about 28lbs. Ultimate weight goal: 250lbs before surgery 13. Please follow the diet plan exactly without any change. If you don't like something about the plan or you feel hungry you need to communicate with me so I can help you revise the plan. You should not change the plan yourself. 14. To be scheduled for EGD to assess the stomach's anatomy. The possibility of biopsies was discussed. Patient needs to avoid use of NSAIDs and aspirin for 1 week prior to EGD. You must be on liquids only the day before your endoscopy. Risks of perforation and bleeding was discussed with the patient. This will be an outpatient procedure with IV sedation. Orders: Orders Insulin Today E11.9 - Type 2 diabetes mellitus without complications, E66.01 - Morbid (severe) obesity due to excess calories, I10 - Essential (primary) hypertension Comprehensive Met. Panel Today E11.9 - Type 2 diabetes mellitus without complications, E66.01 - Morbid (severe) obesity due to excess calories, I10 - Essential (primary) hypertension C Reactive Protein Today E11.9 - Type 2 diabetes mellitus without complications, E66.01 - Morbid (severe) obesity due to excess calories, I10 - Essential (primary) hypertension Vitamin B1 Today E11.9 - Type 2 diabetes mellitus without complications, E66.01 - Morbid (severe) obesity due to excess calories, I10 - Essential (primary) hypertension TSH reflex Free T4 Today E11.9 - Type 2 diabetes mellitus without complications, E66.01 - Morbid (severe) obesity due to excess calories, I10 - Essential (primary) hypertension ECG 12 lead EKG Today E11.9 - Type 2 diabetes mellitus without complications, E66.01 - Morbid (severe) obesity due to excess calories, I10 - Essential (primary) hypertension Hemoglobin A1c Today E11.9 - Type 2 diabetes mellitus without complications, E66.01 - Morbid (severe) obesity due to excess calories, I10 - Essential (primary) hypertension H Pylori Breath Test Today E11.9 - Type 2 diabetes mellitus without complications, E66.01 - Morbid (severe) obesity due to excess calories, I10 - Essential (primary) hypertension Complete Blood Count Auto Diff Today E11.9 - Type 2 diabetes mellitus without complications, E66.01 - Morbid (severe) obesity due to excess calories, I10 - Essential (primary) hypertension Lipid Panel Today E11.9 - Type 2 diabetes mellitus without complications, E66.01 - Morbid (severe) obesity due to excess calories, I10 - Essential (primary) hypertension IRON PROFILE Today E11.9 - Type 2 diabetes mellitus without complications, E66.01 - Morbid (severe) obesity due to excess calories, I10 - Essential (primary) hypertension Vitamin B12 and Folate Today E11.9 - Type 2 diabetes mellitus without complications, E66.01 - Morbid (severe) obesity due to excess calories, I10 - Essential (primary) hypertension Zinc Today E11.9 - Type 2 diabetes mellitus without complications, E66.01 - Morbid (severe) obesity due to excess calories, I10 - Essential (primary) hypertension Vitamin A Today E11.9 - Type 2 diabetes mellitus without complications, E66.01 - Morbid (severe) obesity due to excess calories, I10 - Essential (primary) hypertension Ferritin Today E11.9 - Type 2 diabetes mellitus without complications, E66.01 - Morbid (severe) obesity due to excess calories, I10 - Essential (primary) hypertension Vitamin D 25-OH Total Today E11.9 - Type 2 diabetes mellitus without complications, E66.01 - Morbid (severe) obesity due to excess calories, I10 - Essential (primary) hypertension US abdomen comp w elastography Today E11.9 - Type 2 diabetes mellitus without complications, E66.01 - Morbid (severe) obesity due to excess calories, I10 - Essential (primary) hypertension XR chest 2V Today E11.9 - Type 2 diabetes mellitus without complications, E66.01 - Morbid (severe) obesity due to excess calories, I10 - Essential (primary) hypertension FL upper GI w air Today E11.9 - Type 2 diabetes mellitus without complications, E66.01 - Morbid (severe) obesity due to excess calories, I10 - Essential (primary) hypertension Referrals Behavioral Health Referral E11.9 - Type 2 diabetes mellitus without complications, E66.01 - Morbid (severe) obesity due to excess calories, I10 - Essential (primary) hypertension Nutrition/Dietitian Referral E11.9 - Type 2 diabetes mellitus without complications, E66.01 - Morbid (severe) obesity due to excess calories, I10 - Essential (primary) hypertension
== END 2024-12-02 13:36 | disposition home or self-care (01) ==
LOC: HO.HBS 08:22
PROVIDERS: PCP Internal Medicine; Visit Provider Surgery
DX: E66.01 Morbid (severe) obesity due to excess calories (principal); E66.813 Obesity, class 3; Z68.41 Body mass index [BMI] 40.0-44.9, adult
CPT/HCPCS: 99204

== ENCOUNTER → 2024-12-02 08:22 | Outpatient (BNVA) | payer OTHER, SELFPAY | PROVIDERS: PCP Internal Medicine; Visit Provider Surgery ==

== ENCOUNTER 2025-01-05 11:46 | Emergency (ER) | payer OTHER, SELFPAY ==
--- NOTE | ~2025-01-05 | XR_ITS ---
EXAMINATION: XR CHEST 2 VIEWS HISTORY: dyspnea COMPARISON: Comparison is made with the prior examination dated 02/04/2024. FINDINGS: PA and lateral views of the chest are submitted. The lungs are expanded and clear. There is no pleural effusion, pneumothorax, or pulmonary vascular congestion. The heart is normal in size. The bones are intact. XR/XR chest 2V IMPRESSION: No acute cardiopulmonary abnormality. Electronically signed by: Tyson Mccurdy MD 01/05/2025 12:18 PM EDT
--- NOTE | 2025-01-05 11:59 | ED_ITS ---
HPI - General Adult General Chief complaint: Dyspnea Stated complaint: SOB - asthma Time Seen by Provider: 01/05/25 12:20 Source: patient Mode of arrival: ambulatory Limitations: no limitations History of Present Illness ED Provider: Ninfa Mercer PA-C HPI narrative: 39 y.o female with a past medical history of asthma, diabetes, and HTN presents to the ED with a chief complaint of a cough, sore throat, and increased wheezing. Patient reports that she developed cold/flu like symptoms 2 days ago, a cough and congestion in her nose and face. Patient states that she is out of her albuterol nebulizing solution and her albuterol inhaler at home. Patient states that she has not been on prednisone since August. Related Data Home Medications ?Medication ?Instructions ?Recorded ?Confirmed amlodipine 2.5 mg tablet 2.5 mg PO DAILY 11/28/24 12/02/24 budesonide 90 mcg/actuation breath inhalation 11/28/24 12/02/24 activated powder inhaler (Pulmicort Flexhaler) hydroxyzine HCl 10 mg tablet 10 mg PO BEDTIME 11/28/24 12/02/24 metformin 500 mg tablet,extended 500 mg PO DAILY 11/28/24 12/02/24 release 24 hr sertraline 50 mg tablet 50 mg PO DAILY 11/28/24 12/02/24 Previous Rx's ?Medication ?Instructions ?Recorded albuterol sulfate 2.5 mg/3 mL 2.5 mg (3 mL) inhalation Q4H PRN 12/31/23 (0.083 %) solution for nebulization shortness of breath or wheezing #75 mL albuterol sulfate 90 mcg/actuation 2 inh inhalation Q4-6H PRN 12/31/23 aerosol inhaler shortness of breath or wheezing #6.7 grams fluticasone 100 mcg-salmeterol 50 1 inh inhalation BID #60 ea 02/04/24 mcg/dose blistr powdr for inhalation (Advair Diskus) albuterol sulfate 2.5 mg/3 mL 2.5 mg (3 mL) inhalation Q6H #90 mL 01/05/25 (0.083 %) solution for nebulization albuterol sulfate 90 mcg/actuation 1 inh inhalation QID PRN shortness 01/05/25 aerosol inhaler (Ventolin HFA) of breath or wheezing 30 days #8.5 grams prednisone 20 mg tablet See Rx Instructions .Route 01/05/25 .COMPLEX 9 days #18 tabs Allergies Allergy/AdvReac Type Severity Reaction Status Date / Time morphine Allergy Itching Verified 01/05/25 12:03 Review of Systems Review of Systems: Yes all other systems are reviewed and are negative Constitutional: Constitutional: Reports no additional constitutional complaints, Denies chills, Denies fever(s) and Denies night sweats Eyes: Eyes: Reports no additional eye complaints, Denies blurry vision, Denies change in vision, Denies diplopia, Denies eye discharge, Denies loss of vision and Denies eye pain ENT: Denies dizziness, Reports nasal congestion, Reports sinus pressure and Reports sore throat Cardiovascular: Cardiovascular: Reports no additional cardiovascular complaints, Denies chest pain, Denies lightheadedness, Denies Loss of Consciousness and Denies dyspnea Respiratory: Respiratory: Reports no additional respiratory complaints, Reports change in phlegm color (yellow), Reports cough, Denies dyspnea and Reports wheezing Gastrointestinal: Gastrointestinal: Reports no additional gastrointestinal complaints, Denies abdominal pain, Denies melena, Denies hematochezia, Denies change in bowel habits and Denies change in stool character Genitourinary: Genitourinary: Denies hematuria, Denies urinary frequency, Denies dysuria, Denies urinary incontinence, Denies urinary hesitancy and Denies urinary urgency Musculoskeletal: Musculoskeletal: Reports no additional musculoskeletal complaints, Denies numbness and Denies tingling Neurologic: Denies dizziness, Denies loss of vision, Denies numbness and Denies tingling Psychiatric: Psychiatric: Reports no additional psychiatric complaints Endocrine: Endocrine: Reports no additional endocrine complaints Hematologic/Lymphatic: Hematologic/Lymphatic: Reports no additional hematologic/lymphatic complaints Allergic/Immunologic: Allergic/Immunologic: Reports no additional allergic/immunologic complaints and Reports wheezing PMFSH Past Medical History Attestation statement: The following information was validated with the patient. Source: old records reviewed and nursing notes reviewed Medical History Anxiety Depression Hypertension Asthma Non-insulin dependent type 2 diabetes mellitus Morbid obesity Surgical History History of section Social History Social History Alcohol intake: current Alcohol intake frequency: holidays/special occasions only Patient Tobacco Use Status: Current someday Tobacco user Substance Use Type: Marijuana Advance Directives: No Advance Directives Information Provided: Yes Physical Exam ED Vital Signs: Vital Signs - 24 hr 01/05/25 12:01 01/05/25 12:44 01/05/25 13:25 Temperature 98.2 F 98.3 F Pulse Rate 75 85 85 Respiratory Rate 18 20 20 Blood Pressure 157/89 H 131/77 Pulse Oximetry 96 97 Oxygen Delivery Method Room Air Room Air BMI result Body Mass Index 43.1 Const General: cooperative, no acute distress, alert and awake Nutritional Appearance: well nourished and obese Orientation/consciousness: patient oriented x3 HENMT Head: Yes normal to inspection and Yes atraumatic Ears: hearing grossly normal bilaterally and external ears normal General nose exam: Normal external nose present, no nasal discharge noted and no epistaxis Face and sinus: Yes normal facial exam, No abrasion and No laceration Mouth: Normal oral and palatal mucosa present, no drooling and no muffled voice Eyes General: appearance normal, both eyes and all related structures Periorbital: periorbital findings normal Eyelids: Yes eyelids normal Conjunctivae: conjunctivae normal Pupils: Equal, round and reactive pupils present EOM: EOMs intact bilaterally Neck Neck: Yes normal visual inspection, Yes full ROM and Yes no lymphadenopathy Resp Effort & Inspection: normal respiratory effort and able to speak in complete sentences Auscultation: wheezes (posterior right/left upper ) expiratory wheezes, upper bilaterally and posterior Neuro General: patient oriented x3, moves all extremities and CN's II-XI intact bilaterally Cranial nerves: Yes Equal, round and reactive pupils present Cognition (Neuro): normal cognition Extrem General: Yes normal to inspection, Yes full ROM and Yes capillary refill normal Psych Appearance: grossly normal Mental Status: mental status grossly normal Affect: normal affect Attitude: cooperative Thought process: Normal thought process present Thought content: Normal thought content present Insight: Good insight present (Psych) Course Course Course Narrative: This is a rapid medical exam performed by Richard Serrano NP: Additional HPI, ROS, PE not included below will be deferred to primary provider. Patient is a 39-year-old female with history of asthma, T2DM, HTN, obesity, anxiety and depression presenting with complaint of shortness of breath since yesterday, used albuterol this am with little relief. Denies fever. Plan: viral panel, cxr Medications Administered Discontinued Medications Generic Name Dose Route Start Last Admin Trade Name Garrett PRN Reason Stop Dose Admin Methylprednisolone Sodium Succinate 60 mg 01/05/25 12:21 01/05/25 12:38 Methylprednisolone Sod Succ 125 Mg Vial IM 01/05/25 12:22 60 mg ONCE ONE Administration Medical Decision Making Medical Decision Making [facility] Narrative: Patient is a 39 year old assigned female at with a history of anxiety, depression, HTN, asthma, and DM presenting to the emergency department today with a sore throat, cough, nasal congestion, and increased wheezing. Patient's physical exam was as noted in the physical exam portion of this note. Patient's chest x-ray showed no acute process. Patient's COVID-19, influenza, and RSV testing was negative. I explained my physical exam findings as well as all test results to the patient. I answered all questions asked by the patient. Patient received IM solu-medrol and a breathing treatment which, upon re-evaluation, she stated it helped her symptoms significantly. I stressed the importance of the patient taking her medication as directed (either prescribed or as the over the counter packaging recommends). I stressed the importance of the patient following up with her primary care provider and establishing with a group fitness assistant department head. I stressed the importance of the patient returning to the emergency department immediately if her symptoms were to worsen or if she were to develop any dizziness, shortness of breath, difficulty breathing, chest pain, blurry vision, loss of vision, nausea, vomiting, abdominal pain, fever, chills, back pain, or any other complaints. Patient verbalized agreement and understanding with this treatment plan and discharge. Differential Diagnosis Differential Diagnoses: The differential diagnosis associated with the presentation includes Asthma exacerbation Cough Sinusitis Pharyngitis Admission/Observation Consideration of admission/observation: Escalation of care including admission/o bservation considered Patient would have been admitted to the hospital had her work up had any findings where hospital admission was appropriate and her clinical presentation warranted hospital admission. Lab Data [facility] Lab Attestation statement: I reviewed the patient's lab results. My interpretation of these results are in the MDM Rationale portion of this note. Labs: Lab Results 01/05/25 Range/Units 12:07 Influenza Type A (PCR) NEGATIVE (Negative) Influenza Type B (PCR) NEGATIVE (Negative) RSV RNA Qual (PCR) NEGATIVE (Negative) SARS-CoV-2 RNA (RT-PCR) NEGATIVE (Negative) Independent Interpretation I performed an independent interpretation of an: Plain X-Ray Interpretation: My interpretation is in agreement with the radiologist's impression of this imaging study. EXAMINATION: XR CHEST 2 VIEWS HISTORY: dyspnea COMPARISON: Comparison is made with the prior examination dated 02/04/2024. FINDINGS: PA and lateral views of the chest are submitted. The lungs are expanded and clear. There is no pleural effusion, pneumothorax, or pulmonary vascular congestion. The heart is normal in size. The bones are intact. XR/XR chest 2V IMPRESSION: No acute cardiopulmonary abnormality. Electronically signed by: Tyson Mccurdy MD 01/05/2025 12:18 PM EDT RP Dictated By: Tyson Mccurdy MD Signed By: Electronically signed by Tyson Mccurdy MD 01/05/25 1218 Radiology Impression Discussion of test interpretation with radiology: I have reviewed the radiologist's reading. Discharge Plan Discharge Clinical Impression: Asthma exacerbation Patient Disposition: Home, Self-Care Instructions: Asthma (DC) Additional Instructions: You should establish and follow up with a group fitness assistant department head. Your sugars will be elevated while you are on prednisone - be mindful of this. Follow up with your primary care provider. Return to the emergency department immediately if your symptoms worsen or if you develop any numbness, tingling, dizziness, shortness of breath, difficulty breathing, chest pain, blurry vision, loss of vision, nausea, vomiting, abdominal pain, fever, chills, back pain, or any other complaints. Please see the information below about our Patient Portal. If you are not yet enrolled in the [facility] Patient Portal, you will receive an enrollment email invitation following your visit to any [facility] care setting. You may also self-enroll in the Patient Portal by visiting our website: [email or web address] The following information is required to access the Patient Portal: - Your [facility] Medical Record Number - Your personal home email address (must match what is in your electronic medical record, Registration staff can assist with this) - Name - Date of Capabilities of the Patient Portal: - Message some providers - View upcoming appointments - Access your health summary, medical history, and visit history - View current conditions and allergies - View procedure and lab results - View your medications, including guidelines, side effects, and precautions - Complete pre-appointment questionnaires requested by your provider - Ready summary reports of your office visits and procedures To access the Patient Portal Mobile Lilia, follow these directions: - Search [employer] Online in the Lilia Store or [employer] Store - Download the Lilia - Search for [facility] - Enter your login/password Prescriptions: New albuterol sulfate 2.5 mg /3 mL (0.083 %) solution for nebulization 2.5 mg inhalation Q6H Qty: 90 0RF albuterol sulfate [Ventolin HFA] 90 mcg/actuation HFA aerosol inhaler 1 inh inhalation QID PRN (Reason: shortness of breath or wheezing) 30 Days Qty: 8.5 0RF prednisone 20 mg tablet See Rx Instructions .ROUTE .COMPLEX 9 Days Qty: 18 0RF Rx Instructions: 20 mg orally, Take 3 tablets for 3 days THEN; Take 2 tablets for 3 days THEN; Take 1 tablet for 3 days No Action fluticasone propion-salmeterol [Advair Diskus] 100-50 mcg/dose blister with device 1 inh inhalation BID Qty: 60 0RF albuterol sulfate 90 mcg/actuation HFA aerosol inhaler 2 inh inhalation Q4-6H PRN (Reason: shortness of breath or wheezing) Qty: 6.7 0RF albuterol sulfate 2.5 mg /3 mL (0.083 %) solution for nebulization 2.5 mg inhalation Q4H PRN (Reason: shortness of breath or wheezing) Qty: 75 0RF sertraline 50 mg tablet 50 mg PO DAILY metformin 500 mg tablet extended release 24 hr 500 mg PO DAILY hydroxyzine HCl 10 mg tablet 10 mg PO BEDTIME Pulmicort Flexhaler 90 mcg/actuation aerosol powdr breath activated inhalation amlodipine 2.5 mg tablet 2.5 mg PO DAILY Referrals: [facility] Family Medicine [Provider Group] (Call to establish and follow up with a primary care provider. If you already have a primary care provider, please follow up with them.) [facility] Primary Care, [place] [Provider Group] (Call to establish and follow up with a primary care provider. If you already have a primary care provider, please follow up with them.) [facility] Primary Care, [place] [Provider Group] (Call to establish and follow up with a primary care provider. If you already have a primary care provider, please follow up with them.) [facility] Primary Care, [place] [Provider Group] (Call to establish and follow up with a primary care provider. If you already have a primary care provider, please follow up with them.) [facility] Primary Care, [place] Emerson [Provider Group] (Call to establish and follow up with a primary care provider. If you already have a primary care provider, please follow up with them.) [facility] Pulmonology Services [Provider Group] (Call to establish and follow up with a group fitness assistant department head. ) Interventions: ED Discharge Assessment Last Done: 01/05/25 13:25 Discharge Date/Time: 01/05/25 13:26 Print Language: Wolof
[2025-01-05 12:01] VITALS: BP 157/89; PULSE 75; RESP 18; TEMP 36.8; O2SAT 96; BMI 43.1
[2025-01-05 12:44] VITALS: PULSE 85; RESP 20; O2SAT 96
[2025-01-05 12:57] LABS: Influenza A PCR NEGATIVE (Negative); Influenza B PCR NEGATIVE (Negative); Resp Syncy Virus RNA Qual PCR NEGATIVE (Negative); SARS COV2 PCR INHOUSE NEGATIVE (Negative)
[2025-01-05 13:25] VITALS: BP 131/77; PULSE 85; RESP 20; TEMP 36.8; O2SAT 97
--- OUTSIDE RECORDS SUMMARY | 2025-01-05 13:25 | XMS_ITS | Clinical Summary ---
Author Organization [address] [facility] Building Address [address] [place] [address] Phone Care Team Providers Care Natural Sciences Manager Name Role Phone Kate Davis DO Primary Care Provider Allergies Active Allergy Reactions Criticality Noted Date [...] Date Diagnosed Date Asthma 06/29/2024 Severe obesity ([facility] V24, [facility] V28) 2023 Weight gain 06/29/2024 Type 2 diabetes mellitus wit h obesity ([facility] V24, [facility] V28) 08/28/2023 Anxiety and depression 06/03/2023 Mild [...] Date Smoking Tobacco: Every Day Cigarettes 0.5 27.4 Started: 08/17/1997 Smokeless Tobacco: Never Tobacco Cessation:Ready [...] Venous blood specimen / Unknown Heena Chen MEDICAL ILLUSTRATOR LAB BLOOD ORDERABLES Final Resul t * Lipid panel (06/05/2023) LDL/HDL Ratio 4 Triglycerides 179 mg/dL Cholesterol 198 mg/dL HDL 47 mg/dL LDL Cholesterol 116 mg/dL Blood Venous blood specimen / Unknown Heena Chen MEDICAL ILLUSTRATOR LAB BLOOD ORDERABLES Final Resul t from Last 3 Months or Most Recently Relevant to Health Maintenance Insurance [facility] [employer] Care Teams Natural Sciences Manager Relationship Specialty Start Date End Date Kate Davis DO [address] [place] [address] PCP - General 03/10/23
== END 2025-01-05 13:26 | disposition home or self-care (01) ==
PROVIDERS: Registered Nurse Emergency; Emergency Provider Emergency Medicine
DX: J45.901 Unspecified asthma with (acute) exacerbation (principal); R05.9 Cough, unspecified; J02.9 Acute pharyngitis, unspecified; Z03.818 Encounter for observation for suspected exposure to other biological agents ruled out; I10 Essential (primary) hypertension; E11.9 Type 2 diabetes mellitus without complications; Z79.899 Other long term (current) drug therapy
CPT/HCPCS: 0241U; 71046; 96372; 99283; 99284; J2919

== ENCOUNTER → 2025-01-05 12:02 | Outpatient (BNV) | payer OTHER, SELFPAY | PROVIDERS: Visit Provider Radiology Diagnostic Radiology | DX: R06.00 Dyspnea, unspecified (principal) | CPT/HCPCS: 71046 ==

== ENCOUNTER 2025-01-25 00:11 | Emergency (ER) | payer OTHER, SELFPAY ==
--- NOTE | ~2025-01-25 | XR_ITS ---
CLINICAL HISTORY: shortness of breath wheezing 2 view chest x-ray Comparison: CR/SR - XR CHEST 2V - 01/05/25 12:15 EDT Findings: The lungs are clear. Normal size heart. No acute fracture. IMPRESSION: 1. No acute findings. This document has been electronically signed by: Bradley De La Vega MD, PHD on 01/25/2025 00:52:49
[2025-01-25 00:21] VITALS: BP 144/90; PULSE 78; RESP 18; TEMP 36.8; O2SAT 97; BMI 42.9
[2025-01-25 02:23] LABS: MANUAL DIFF FLAG NO
[2025-01-25 02:25] LABS: Basophils Percent Auto 0.2 % (0-2); Eosinophils Absolute Auto 0.3 X10*3/uL (0.0-0.4); Eosinophils Percent Auto 3.7 % (0-4); Hematocrit 32.1 % (37.0-47.0); Hemoglobin 10.3 g/dl (12.0-16.0); Imm Gran Abs Auto 0.02 X10*3/uL (0.00-0.03); Imm Gran Pct Auto 0.2 % (0.0-0.4); Lymphocytes Absolute Auto 4.2 X10*3/uL (1.2-4.9); Lymphocytes Percent Auto 48.1 % (20-40); Mean Corpuscular HGB Conc 32.1 g/dl (31.0-35.0); Mean Corpuscular Hemoglobin 24.1 pg (27.0-33.0); Mean Platelet Volume 8.5 fL (9.4-12.3); Monocytes Absolute Auto 0.5 X10*3/uL (0.1-1.2); Monocytes Percent Auto 5.2 % (2-11); Neutrophils Absolute Auto 3.7 x10*3/uL (2.0-8.3); Neutrophils Percent Auto 42.6 % (45-73); Platelet Count 266 X10*3/uL (160-400); Red Blood Count 4.28 X10*6/uL (4.20-5.50); Red Cell Distribution Width 15.9 % (11.0-16.0); White Blood Count 8.6 X10*3/uL (4.8-10.8)
[2025-01-25 02:54] LABS: Alanine Aminotransferase 23 U/L (0-31); Alkaline Phosphatase 75 U/L (39-117); Anion Gap 12 (12-20); Aspartate Amino Transferase 20 U/L (5-31); Bilirubin Direct < 0.2 mg/dL (0.0-0.5); Bilirubin Total 0.1 mg/dL (0.0-1.0); Blood Urea Nitrogen 11 mg/dL (9-16); Calcium 8.7 mg/dL (8.4-10.2); Carbon Dioxide 24 mmol/L (22-29); Chloride 109 mmol/L (96-108); Creatinine Clr Calc Pharmacy 135.9; Estimated Glomerular Filt Rate > 60; Glucose Random 266 mg/dL (60-115); Potassium 3.9 mmol/L (3.3-5.1); Sodium 141 mmol/L (135-145); Total Protein 6.3 g/dL (6.5-8.0)
[2025-01-25 03:03] LABS: Influenza A PCR NEGATIVE (Negative); Influenza B PCR NEGATIVE (Negative); Resp Syncy Virus RNA Qual PCR NEGATIVE (Negative); SARS COV2 PCR INHOUSE NEGATIVE (Negative)
[2025-01-25 06:08] VITALS: BP 145/95; PULSE 72; RESP 20; O2SAT 99
--- OUTSIDE RECORDS SUMMARY | 2025-01-25 06:50 | XMS_ITS | Clinical Summary ---
Author Organization [address] [facility] Building Address [address] [place] [address] Phone Care Team Providers Care Job Placement Officer Name Role Phone Kate Davis DO Primary Care Provider [phone] Allergies Active Allergy Reactions Criticality Noted Date [...] Date Diagnosed Date Asthma 06/29/2024 Severe obesity ([facility] V24, [facility] V28) 2023 Weight gain 06/29/2024 Type 2 diabetes mellitus wit h obesity ([facility] V24, [facility] V28) 08/28/2023 Anxiety and depression [...] Venous blood specimen / Unknown Heena Chen NP LAB BLOOD ORDERABLES Final Resul t * Lipid panel (06/05/2023) LDL/HDL Ratio 4 Triglycerides 179 mg/dL Cholesterol 198 mg/dL HDL 47 mg/dL LDL Cholesterol 116 mg/dL Blood Venous blood specimen / Unknown Heena Chen SENIOR CONTRACT SPECIALIST LAB BLOOD ORDERABLES Final Resul t from Last 3 Months or Most Recently Relevant to Health Maintenance Insurance [facility] [employer] Care Teams Job Placement Officer Relationship Specialty Start Date End Date Kate Davis DO [address] [place] [address] PCP - General 03/10/23
[2025-01-25 07:11] VITALS: BP 153/95; PULSE 71; RESP 18; TEMP 36.6; O2SAT 100
[2025-01-25 08:55] VITALS: PULSE 75; RESP 21; O2SAT 100
[2025-01-25] MEDS: Albuterol Sulfate 2.5 MG, Albuterol/Iprat 2.5/0.5MG 3 ML 3 ML INHALE (08:59)
[2025-01-25 09:09] LABS: Troponin-I High Sensitivity < 2.7 ng/L (<3.5-17.0)
--- NOTE | 2025-01-25 09:19 | ED.SOB ---
HPI - SOB/Dyspnea General Chief Complaint: Dyspnea Stated Complaint: breathing problems/ asthma Time Seen by Provider: 01/25/25 08:04 Source: patient, RN notes reviewed and old records reviewed Mode of arrival: ambulatory History of Present Illness ED Provider: Lolly Novoa PA-C HPI Narrative: 39-year-old female with a past medical history anxiety, depression, HTN, asthma, diabetes, obesity, presenting to the ED complaining of SOB, dry cough, and chest tightness x last night. Admits symptoms feel similar to prior asthma. Denies fever, chills, travel, sick contacts, pedal edema Related Data Home Medications ?Medication ?Instructions ?Recorded ?Confirmed amlodipine 2.5 mg tablet 2.5 mg PO DAILY 11/28/24 12/02/24 budesonide 90 mcg/actuation breath inhalation 11/28/24 12/02/24 activated powder inhaler (Pulmicort Flexhaler) hydroxyzine HCl 10 mg tablet 10 mg PO BEDTIME 11/28/24 12/02/24 metformin 500 mg tablet,extended 500 mg PO DAILY 11/28/24 12/02/24 release 24 hr sertraline 50 mg tablet 50 mg PO DAILY 11/28/24 12/02/24 Previous Rx's ?Medication ?Instructions ?Recorded albuterol sulfate 2.5 mg/3 mL 2.5 mg (3 mL) inhalation Q4H PRN 12/31/23 (0.083 %) solution for nebulization shortness of breath or wheezing #75 mL albuterol sulfate 90 mcg/actuation 2 inh inhalation Q4-6H PRN 12/31/23 aerosol inhaler shortness of breath or wheezing #6.7 grams fluticasone 100 mcg-salmeterol 50 1 inh inhalation BID #60 ea 02/04/24 mcg/dose blistr powdr for inhalation (Advair Diskus) albuterol sulfate 2.5 mg/3 mL 2.5 mg (3 mL) inhalation Q6H #90 mL 01/05/25 (0.083 %) solution for nebulization albuterol sulfate 90 mcg/actuation 1 inh inhalation QID PRN shortness 01/05/25 aerosol inhaler (Ventolin HFA) of breath or wheezing 30 days #8.5 grams prednisone 20 mg tablet See Rx Instructions .Route 01/05/25 .COMPLEX 9 days #18 tabs albuterol sulfate 2.5 mg/0.5 mL 5 mg inhalation Q4H PRN shortness 01/25/25 solution for nebulization of breath or wheezing #30 ea albuterol sulfate 90 mcg/actuation 2 puff inhalation Q4-6H PRN 01/25/25 aerosol inhaler shortness of breath or wheezing #6.7 grams prednisone 20 mg tablet 40 mg (2 x 20 mg) PO DAILY 5 days 01/25/25 #10 tabs Allergies Allergy/AdvReac Type Severity Reaction Status Date / Time morphine Allergy Itching Verified 01/25/25 00:24 Review of Systems Review of Systems: Yes all other systems are reviewed and are negative Constitutional: Constitutional: Reports as per [facility] Past Medical History Attestation statement: The following information was validated with the patient. Source: old records reviewed Medical History Anxiety Depression Hypertension Asthma Non-insulin dependent type 2 diabetes mellitus Morbid obesity Surgical History History of section Social History Social History Alcohol intake: current Alcohol intake frequency: holidays/special occasions only Patient Tobacco Use Status: Current someday Tobacco user Substance Use Type: Marijuana Physical Exam Vital Signs: Vital Signs: Last Vital Signs Temp 98 F 01/25/25 10:01 Pulse 82 01/25/25 10:01 Resp 18 01/25/25 10:01 BP 140/91 H 01/25/25 10:01 Pulse Ox 99 01/25/25 10:01 O2 Del Method Room Air 01/25/25 10:01 BMI result Body Mass Index 42.9 Const: General: cooperative, healthy appearing and no acute distress Orientation/consciousness: patient oriented x3 Limitations: no limitations HEENT: Head: Yes normal to inspection and Yes atraumatic Ears: hearing grossly normal bilaterally General nose exam: Normal external nose present Face and sinus: Yes normal facial exam Eyes: General: appearance normal, both eyes and all related structures EOM: EOMs intact bilaterally Neck: Neck: Yes normal visual inspection and Yes no meningeal signs Resp: Effort & Inspection: normal respiratory effort and no respiratory distress Auscultation: wheezes expiratory wheezes and lower bilaterally Cardio: Rate: regular rate Heart sounds: S1 normal heart sound present and S2 normal heart sound present GI: Inspection: Yes normal to inspection Palpation (GI): Soft to palpation, nontender, no guarding and not rigid Skin: Rashes: no rashes Wounds: no wounds Neuro: General: patient oriented x3, tone normal and no meningeal signs Cranial nerves: Yes CN's II-XII intact bilaterally Gait exam (Neuro): Normal gait present Extrem: General: Yes normal to inspection, Yes no pedal edema and Yes no calf tenderness Course Course Course Narrative: -946--labs reassuring including negative troponin -viral testing negative -CXR unremarkable >> on re-evaluation after IV Solu-Medrol and DuoNeb lungs CTA. Better air movement. Patient feels comfortable for discharge home at this time. Results discussed with patient including worrisome signs and symptoms and strict return precautions, and when to return to the emergency department. They verbalized understanding and feel safe for discharge at this time. Medications Administered Discontinued Medications Generic Name Dose Route Start Last Admin Trade Name Oseiq PRN Reason Stop Dose Admin Albuterol Sulfate 2.5 mg/ 0 mg 01/25/25 08:55 01/25/25 08:59 Albuterol/Ipratropium 3 ml INHALE 01/25/25 08:56 5 dose ONCE ONE Administration Methylprednisolone Sodium Succinate 60 mg 01/25/25 08:30 01/25/25 09:33 Methylprednisolone Sod Succ 125 Mg Vial IVPUSH 01/25/25 08:31 60 mg ONCE ONE Administration Medical Decision Making Medical Decision Making [facility] Narrative: 39-year-old female with a past medical history anxiety, depression, HTN, asthma, diabetes, obesity, presenting to the ED complaining of SOB, dry cough, and chest tightness x last night. On exam vital signs stable, NAD, nontoxic appearing, bibasilar expiratory wheeze appreciated, no pedal edema/calf tenderness. Concern for asthma exacerbation vs viral illness vs pneumonia vs bronchitis. Lower suspicion for acute ACS/PE or dissection at this time Plan: EKG, labs, CXR, viral testing, ED bronch protocol, IV Solu-Medrol, re-evaluate Please refer to course for remaining clinical decision making, interpretation of labs/imaging results, and discussions with consultants and/or family members. Differential Diagnosis Differential Diagnoses: The differential diagnosis associated with the presentation includes As above Admission/Observation Consideration of admission/observation: Escalation of care including admission/observation considered Lab Data MDM Lab Attestation statement: I reviewed the patient's lab results. 01/25/25 02:16 01/25/25 02:16 Labs: Lab Results 01/25/25 Range/Units 02:16 WBC 8.6 (4.8-10.8) X10*3/uL RBC 4.28 (4.20-5.50) X10*6/uL Hgb 10.3 L (12.0-16.0) g/dl Hct 32.1 L (37.0-47.0) % MCV 75.0 L (80.0-98.0) fL MCH 24.1 L (27.0-33.0) pg MCHC 32.1 (31.0-35.0) g/dl RDW 15.9 (11.0-16.0) % Plt Count 266 (160-400) X10*3/uL MPV 8.5 L (9.4-12.3) fL Immature Gran % (Auto) 0.2 (0.0-0.4) % Neut % (Auto) 42.6 L (45-73) % Lymph % (Auto) 48.1 H (20-40) % [place] % (Auto) 5.2 (2-11) % Eos % (Auto) 3.7 (0-4) % Baso % (Auto) 0.2 (0-2) % Lymph # (Auto) 4.2 (1.2-4.9) X10*3/uL [place] # (Auto) 0.5 (0.1-1.2) X10*3/uL Eos # (Auto) 0.3 (0.0-0.4) X10*3/uL Baso # (Auto) 0.0 (0.0-0.2) X10*3/uL Abs Immat Gran (auto) 0.02 (0.00-0.03) X10*3/uL Absolute Neuts (auto) 3.7 (2.0-8.3) x10*3/uL Absolute Nucleated RBC 0.000 (0.0-0.012) X10*3/uL Nucleated RBC % (auto) 0.0 (0.0-0.2) /100WBC Sodium 141 (135-145) mmol/L Potassium 3.9 (3.3-5.1) mmol/L Chloride 109 H (96-108) mmol/L Carbon Dioxide 24 (22-29) mmol/L Anion Gap 12 (12-20) BUN 11 (9-16) mg/dL Creatinine 0.76 (0.5-1.4) mg/dL Estim Creat Clear Calc 135.9 Estimated GFR > 60 Random Glucose 266 H (60-115) mg/dL Calcium 8.7 D (8.4-10.2) mg/dL Total Bilirubin 0.1 (0.0-1.0) mg/dL Direct Bilirubin < 0.2 (0.0-0.5) mg/dL AST 20 (5-31) U/L ALT 23 (0-31) U/L Alkaline Phosphatase 75 (39-117) U/L Troponin I High Sens < 2.7 (<3.5-17.0) ng/L Total Protein 6.3 L (6.5-8.0) g/dL Albumin 4.0 (3.5-5.0) g/dL Influenza Type A (PCR) NEGATIVE (Negative) Influenza Type B (PCR) NEGATIVE (Negative) RSV RNA Qual (PCR) NEGATIVE (Negative) SARS-CoV-2 RNA (RT-PCR) NEGATIVE (Negative) Independent Interpretation I performed an independent interpretation of an: EKG and Plain X-Ray Radiology Impression Discussion of test interpretation with radiology: I have reviewed the radiologist's reading. External Record Review External record reviewed: Inpatient record, Office record, Outpatient record, Prior outpatient labs, Prior outpatient radiology, Primary care record and Outside ED record Tests considered The following testing was considered but not selected: As above Prescription Management I considered prescription management with: Pain Medication Chronic Conditions Patient?s care impacted by: Diabetes, Hypertension and Other (asthma) Social Determinants Patient?s care significantly limited by Social Determinants of Health including: Other Social Determinant of Health Critical Care Time Critical Care Time Critical Care Time: Yes Total Critical Care Time: 32 Attestation: I have personally provided critical care time exclusive of time spent on separately billable procedures. Time includes review of lab data, radiology results, discussion with consultants, and monitoring for potential decompensation. Intervention performed as documented. Discharge Plan Discharge Clinical Impression: Asthma with exacerbation Patient Disposition: Home, Self-Care Instructions: Asthma (DC) Additional Instructions: Your blood work is reassuring Your x-ray does not show pneumonia You tested negative for COVID, flu, RSV Continue to use your inhaler/neb machine at home Take prednisone until completion Follow up with her doctor If her symptoms persist or worsen return to the ED Prescriptions: New prednisone 20 mg tablet 40 mg PO DAILY 5 Days Qty: 10 0RF albuterol sulfate 90 mcg/actuation HFA aerosol inhaler 2 puff inhalation Q4-6H PRN (Reason: shortness of breath or wheezing) Qty: 6.7 0RF albuterol sulfate 2.5 mg/0.5 mL solution for nebulization 5 mg inhalation Q4H PRN (Reason: shortness of breath or wheezing) Qty: 30 0RF No Action fluticasone propion-salmeterol [Advair Diskus] 100-50 mcg/dose blister with device 1 inh inhalation BID Qty: 60 0RF albuterol sulfate 2.5 mg /3 mL (0.083 %) solution for nebulization 2.5 mg inhalation Q6H Qty: 90 0RF albuterol sulfate [Ventolin HFA] 90 mcg/actuation HFA aerosol inhaler 1 inh inhalation QID PRN (Reason: shortness of breath or wheezing) 30 Days Qty: 8.5 0RF prednisone 20 mg tablet See Rx Instructions .ROUTE .COMPLEX 9 Days Qty: 18 0RF Rx Instructions: 20 mg orally, Take 3 tablets for 3 days THEN; Take 2 tablets for 3 days THEN; Take 1 tablet for 3 days albuterol sulfate 90 mcg/actuation HFA aerosol inhaler 2 inh inhalation Q4-6H PRN (Reason: shortness of breath or wheezing) Qty: 6.7 0RF albuterol sulfate 2.5 mg /3 mL (0.083 %) solution for nebulization 2.5 mg inhalation Q4H PRN (Reason: shortness of breath or wheezing) Qty: 75 0RF sertraline 50 mg tablet 50 mg PO DAILY metformin 500 mg tablet extended release 24 hr 500 mg PO DAILY hydroxyzine HCl 10 mg tablet 10 mg PO BEDTIME Pulmicort Flexhaler 90 mcg/actuation aerosol powdr breath activated inhalation amlodipine 2.5 mg tablet 2.5 mg PO DAILY Referrals: Physician,Unknown J [Primary Care Provider] - 5 days Stand Alone Forms: Work/School Release Interventions: ED Discharge Assessment Last Done: 01/25/25 10:01 Discharge Date/Time: 01/25/25 10:05 Print Language: Welsh
--- NOTE | 2025-01-25 09:21 | ECG_ITS ---
Test Reason : dyspnea Blood Pressure : */* mmHG Vent. Rate : 70 BPM Atrial Rate : 70 BPM P-R Int : 158 ms QRS Dur : 82 ms QT Int : 396 ms P-R-T Axes : 42 44 128 degrees QTcB Int : 427 ms Normal sinus rhythm T wave abnormality, consider lateral ischemia Abnormal ECG When compared with ECG of 04-Feb-2024 21:54, No significant change was found Referred By: Lolly Novoa Electronically Signed By: BE ORTA MD
[2025-01-25 09:34] VITALS: BP 140/91; PULSE 82; RESP 18; O2SAT 99
[2025-01-25 10:01] VITALS: BP 140/91; PULSE 82; RESP 18; TEMP 36.6; O2SAT 99
== END 2025-01-25 10:05 | disposition home or self-care (01) ==
PROVIDERS: Physician Assistant; Emergency Provider Emergency Medicine Emergency Medical Services
DX: J45.901 Unspecified asthma with (acute) exacerbation (principal); R05.9 Cough, unspecified; R06.02 Shortness of breath; Z03.818 Encounter for observation for suspected exposure to other biological agents ruled out; E11.9 Type 2 diabetes mellitus without complications; I10 Essential (primary) hypertension; E66.9 Obesity, unspecified; Z68.41 Body mass index [BMI] 40.0-44.9, adult; F12.90 Cannabis use, unspecified, uncomplicated; F17.200 Nicotine dependence, unspecified, uncomplicated; Z79.84 Long term (current) use of oral hypoglycemic drugs; Z79.899 Other long term (current) drug therapy
CPT/HCPCS: 0241U; 71046; 80048; 80076; 84484; 85025; 93005; 94640; 96374; 99284; 99285; J2919

== ENCOUNTER → 2025-01-25 09:21 | Outpatient (BNV) | payer OTHER, SELFPAY | PROVIDERS: Emergency Provider Emergency Medicine Emergency Medical Services; Visit Provider Internal Medicine Cardiovascular Disease | DX: R06.02 Shortness of breath (principal); R06.2 Wheezing | CPT/HCPCS: 93010 ==

== ENCOUNTER → 2025-01-25 23:36 | Outpatient (BNV) | payer OTHER, SELFPAY | PROVIDERS: Visit Provider General Practice | DX: R06.02 Shortness of breath (principal); R06.2 Wheezing | CPT/HCPCS: 71046 ==

== ENCOUNTER 2025-03-26 14:02 | Emergency (ER) | payer SELFPAY ==
--- NOTE | ~2025-03-26 | XR_ITS ---
CLINICAL HISTORY: back pain, injury 3 views thoracic spine Comparison: CR - XR LUMBAR SPINE 2-3V - 03/26/25 14:31 EDT CR - XR CHEST 2V - 01/25/25 00:36 EDT Findings: There is mild convex right lower thoracic curvature with compensatory convex left thoracolumbar curvature. Alignment is anatomic on the lateral views. No fracture. IMPRESSION: Spinal curvature as above without fracture. This document has been electronically signed by: Cecilio Goldberg MD on 03/26/2025 14:43:50
--- NOTE | ~2025-03-26 | XR_ITS ---
CLINICAL HISTORY: back pain, injury 4 views lumbar spine Comparison: CR - XR THORACIC SPINE 2V - 03/26/25 14:30 EDT Findings: Mild convex left thoracolumbar curvature. Bony alignment is otherwise anatomic. No fracture. Disc space heights are well preserved. IMPRESSION: Mild spinal curvature. Otherwise, no acute findings. This document has been electronically signed by: Cecilio Goldberg MD on 03/26/2025 14:44:09
[2025-03-26 14:10] VITALS: BP 179/104; PULSE 80; RESP 16; TEMP 36.3; O2SAT 99; BMI 40.7
--- NOTE | 2025-03-26 14:10 | ED.GENADULT ---
HPI - General Adult General Chief complaint: Back Pain/Injury Stated complaint: severe Back pain Time Seen by Provider: 03/26/25 16:45 Source: patient and RN notes reviewed Mode of arrival: ambulatory Limitations: no limitations History of Present Illness ED Provider: Diana Crenshaw PA-C HPI narrative: This is a 39-year-old female, with a past medical history of depression, hypertension, asthma, type 2 diabetes, who presents emergency department with concerns of back pain which started 3 days ago. Patient denies any known injury or trauma. She does report that she frequently lifts her grandchild, and also works at [employer] which requires her to lift boxes every so often. No known injury. She does report that the pain worsens with positional changes. She denies any fevers, chills, chest pain, shortness of breath, abdominal pain, nausea, vomiting or diarrhea. No urinary symptoms. Denies any saddle anesthesia. No urinary or bowel retention or incontinence. She has been applying a warm compress to the area which has provided her with some relief. No other complaints or concerns at this time. MD complaint: Back pain Onset (ago): day(s) Severity: moderate Pain Consistency: constant Relieving factors: none Exacerbating factors: none Associated symptoms: denies other symptoms Treatments prior to arrival: none Related Data Home Medications ?Medication ?Instructions ?Recorded ?Confirmed amlodipine 2.5 mg tablet 2.5 mg PO DAILY 11/28/24 12/02/24 budesonide 90 mcg/actuation breath inhalation 11/28/24 12/02/24 activated powder inhaler (Pulmicort Flexhaler) hydroxyzine HCl 10 mg tablet 10 mg PO BEDTIME 11/28/24 12/02/24 metformin 500 mg tablet,extended 500 mg PO DAILY 11/28/24 12/02/24 release 24 hr sertraline 50 mg tablet 50 mg PO DAILY 11/28/24 12/02/24 Previous Rx's ?Medication ?Instructions ?Recorded albuterol sulfate 2.5 mg/3 mL 2.5 mg (3 mL) inhalation Q4H PRN 12/31/23 (0.083 %) solution for nebulization shortness of breath or wheezing #75 mL albuterol sulfate 90 mcg/actuation 2 inh inhalation Q4-6H PRN 12/31/23 aerosol inhaler shortness of breath or wheezing #6.7 grams fluticasone 100 mcg-salmeterol 50 1 inh inhalation BID #60 ea 02/04/24 mcg/dose blistr powdr for inhalation (Advair Diskus) albuterol sulfate 2.5 mg/3 mL 2.5 mg (3 mL) inhalation Q6H #90 mL 01/05/25 (0.083 %) solution for nebulization albuterol sulfate 90 mcg/actuation 1 inh inhalation QID PRN shortness 01/05/25 aerosol inhaler (Ventolin HFA) of breath or wheezing 30 days #8.5 grams prednisone 20 mg tablet See Rx Instructions .Route 01/05/25 .COMPLEX 9 days #18 tabs albuterol sulfate 2.5 mg/0.5 mL 5 mg inhalation Q4H PRN shortness 01/25/25 solution for nebulization of breath or wheezing #30 ea albuterol sulfate 90 mcg/actuation 2 puff inhalation Q4-6H PRN 01/25/25 aerosol inhaler shortness of breath or wheezing #6.7 grams prednisone 20 mg tablet 40 mg (2 x 20 mg) PO DAILY 5 days 01/25/25 #10 tabs acetaminophen 500 mg tablet 500 - 1,000 mg (1 - 2 x 500 mg) PO 03/26/25 (Tylenol Extra Strength) Q6H PRN pain #30 tabs ibuprofen 600 mg tablet 600 mg PO Q6H PRN pain #30 tabs 03/26/25 lidocaine 5 % topical patch 1 patch topical DAILY #30 ea 03/26/25 methocarbamol 750 mg tablet 750 mg PO TID 3 days #9 tabs 03/26/25 prednisone 20 mg tablet 40 mg (2 x 20 mg) PO DAILY 4 days 03/26/25 #8 tabs Allergies Allergy/AdvReac Type Severity Reaction Status Date / Time morphine Allergy Itching Verified 03/26/25 14:15 Review of Systems Review of Systems: Yes all other systems are reviewed and are negative Constitutional: Constitutional: Reports as per [facility] Past Medical History Attestation statement: The following information was validated with the patient. Medical History Anxiety Depression Hypertension Asthma Non-insulin dependent type 2 diabetes mellitus Morbid obesity Surgical History History of section Social History Social History Alcohol intake: current Alcohol intake frequency: holidays/special occasions only Patient Tobacco Use Status: Current someday Tobacco user Substance Use Type: Marijuana Advance Directives: Yes Advance Directives Information Provided: No Advance Directives on File: No Do you have a plan to hurt others: No Plan Physical Exam ED Vital Signs: Vital Signs - 24 hr 03/26/25 14:10 03/26/25 18:35 Temperature 97.3 F 97.3 F Pulse Rate 80 67 Respiratory Rate 16 16 Blood Pressure 179/104 H 126/80 Pulse Oximetry 99 98 Oxygen Delivery Method Room Air Room Air BMI result Body Mass Index 40.7 Const General: cooperative, comfortable and no acute distress Orientation/consciousness: patient oriented x3 Limitations: no limitations HENMT Head: Yes normal to inspection, Yes normocephalic and Yes atraumatic Ears: hearing grossly normal bilaterally General nose exam: Normal external nose present Face and sinus: Yes normal facial exam Mouth: Normal oral and palatal mucosa present, oropharynx normal and moist mucous membranes Throat: Yes posterior oropharynx normal Eyes General: appearance normal, both eyes and all related structures Eyelids: Yes eyelids normal Conjunctivae: conjunctivae normal Sclerae: sclerae normal Pupils: Equal, round and reactive pupils present EOM: EOMs intact bilaterally Neck Neck: Yes normal visual inspection, Yes full ROM and Yes no lymphadenopathy Lymphatic: no lymphadenopathy noted Chest Chest palpation & inspection: normal inspection of the chest Resp Effort & Inspection: normal respiratory effort and able to speak in complete sentences Auscultation: clear to auscultation bilaterally, no crackles, no rales, no rhonchi and no wheezes Cardio Rate: regular rate Rhythm: regular rhythm Heart sounds: S1 normal heart sound present and S2 normal heart sound present GI Inspection: Yes normal to inspection General: Yes no CVA tenderness Back/Spine/Pelvis Other: No midline spine tenderness on examination, she does have tenderness palpation throughout the lumbar paraspinous muscles. Palpable muscle spasms throughout. She is ambulatory with steady gait. No flank tenderness. Strength 5/5 in lower extremities. Distal sensation circulation intact. Back: no CVA tenderness Skin General skin exam: no rashes or lesions noted Trauma: no lacerations or abrasions Wounds: no wounds Neuro General: patient oriented x3 and moves all extremities Cranial nerves: Yes Equal, round and reactive pupils present Extrem General: Yes normal to inspection Right upper extremity: normal to inspection Left upper extremity: normal to inspection Right lower extremity: normal to inspection Left lower extremity: normal to inspection Course Course Course Narrative: Rapid medical examination performed in triage by Ninfa Mercer PA-C. Patient is a 39 year old assigned female at presenting to the emergency department with back pain. Patient states she is having atraumatic back pain. Detailed physical exam and review of systems are deferred to the geology teacher. Patient placed back in the waiting room pending room availability. Medications Administered Discontinued Medications Generic Name Dose Route Start Last Admin Trade Name Freq PRN Reason Stop Dose Admin Diazepam 5 mg 03/26/25 17:22 03/26/25 17:39 Diazepam 5 Mg Tablet PO 03/26/25 17:23 5 mg ONCE ONE Administration Ketorolac Tromethamine 30 mg 03/26/25 17:22 03/26/25 17:41 Ketorolac Tromethamine 30 Mg/Ml Vial IM 03/26/25 17:23 30 mg ONCE ONE Administration Prednisone 50 mg 03/26/25 17:22 03/26/25 17:39 Prednisone 10 Mg Tablet PO 03/26/25 17:23 50 mg ONCE ONE Administration Medical Decision Making Medical Decision Making MDM Narrative: This is a 39-year-old female who presents emergency department for evaluation of back pain for the last several days. On arrival, patient mildly hypertensive at 179/104, likely secondary to pain. She is ambulatory with steady gait. Patient with tenderness palpation along the thoracic and lumbar paraspinous muscles with spasms noted. This patient presents with back pain most consistent with lumbar strain. Differential diagnoses includes lumbago versus musculoskeletal spasm / strain versus sciatica.\ No back pain red flags on history or physical. Presentation not consistent with malignancy (lack of history of malignancy, lack of B symptoms), fracture (no trauma, no bony tenderness to palpation), cauda equina syndrome (no bowel or urinary incontinence/retention, no saddle anesthesia, no distal weakness), pulmonary embolism, renal colic, pyelonephritis (afebrile, no CVAT, no urinary symptoms). X-rays were obtained prior to my evaluation, spinal curvature noted, otherwise no acute findings. Patient's symptoms consistent with muscle strain, spasm. Will medicate with p.o. Valium, prednisone, and Toradol IM. We will continue to monitor pending overall workup. Course: 1824 - patient re-evaluated, she is feeling better, pain has improved. We will continue to monitor. 1931 - patient re-evaluated, feeling much better after receiving medications and will be discharged on prednisone, muscle relaxants, and others conservative treatment. Advised to monitor his sugars while on prednisone as this, cause elevation in blood glucose. His eyes to follow-up with PCP. Given strict return precautions, she understands and agrees with plan. Patient stable for discharge. Differential Diagnosis Differential Diagnoses: The differential diagnosis associated with the presentation includes See above Radiology Impression Discussion of test interpretation with radiology: I have reviewed the radiologist's reading. Radiologist Impression: CLINICAL HISTORY: back pain, injury 3 views thoracic spine Comparison: CR - XR LUMBAR SPINE 2-3V - 03/26/25 14:31 EDT CR - XR CHEST 2V - 01/25/25 00:36 EDT Findings: There is mild convex right lower thoracic curvature with compensatory convex left thoracolumbar curvature. Alignment is anatomic on the lateral views. No fracture. IMPRESSION: Spinal curvature as above without fracture. This document has been electronically signed by: Cecilio Goldberg MD on 03/26/2025 14:43:50 Dictated By: Cecilio Goldberg MD Findings: Mild convex left thoracolumbar curvature. Bony alignment is otherwise anatomic. No fracture. Disc space heights are well preserved. IMPRESSION: Mild spinal curvature. Otherwise, no acute findings. This document has been electronically signed by: Cecilio Goldberg MD on 03/26/2025 14:44:09 Dictated By: Cecilio Goldberg MD Discharge Plan Discharge Clinical Impression: Back strain, Muscle spasm Patient Disposition: Home, Self-Care Instructions: Muscle Strain (DC), Back Pain (ED) Additional Instructions: You were seen in the emergency department due to back pain. You likely are experiencing muscle spasms and muscle strains causing you to have the symptoms. Your x-ray does not show any bony abnormalities. You do have mild spinal curvature noted. Please follow-up with your primary care physician. Please take prescribed medication as directed. Prednisone as an anti-inflammatory medication, you already received your dose today, start this tomorrow. Please be advised that this can elevate your blood glucose level. Please monitor sugars closely. Please be advised that Robaxin is a muscle relaxants, and can cause drowsiness, do not drink alcohol or drive while taking this medication. Alternate between ibuprofen and or Tylenol as needed for pain. Lidocaine patches can be beneficial, do not directly apply heat or ice to the regions as this can cause thermal mahmood. Gentle stretching, heat can also help. If any new or worsening symptoms occur including but not limited to chest pain, shortness of breath, please seek emergent care. Prescriptions: New methocarbamol 750 mg tablet 750 mg PO TID 3 Days Qty: 9 0RF prednisone 20 mg tablet 40 mg PO DAILY 4 Days Qty: 8 0RF Rx Instructions: start 03/27/2025 acetaminophen [Tylenol Extra Strength] 500 mg tablet 500 - 1,000 mg PO Q6H PRN (Reason: pain) Qty: 30 0RF lidocaine 5 % adhesive patch,medicated 1 patch topical DAILY Qty: 30 0RF Rx Instructions: leave on most painful area for up to 12 hrs ibuprofen 600 mg tablet 600 mg PO Q6H PRN (Reason: pain) Qty: 30 0RF No Action fluticasone propion-salmeterol [Advair Diskus] 100-50 mcg/dose blister with device 1 inh inhalation BID Qty: 60 0RF albuterol sulfate 2.5 mg /3 mL (0.083 %) solution for nebulization 2.5 mg inhalation Q6H Qty: 90 0RF albuterol sulfate [Ventolin HFA] 90 mcg/actuation HFA aerosol inhaler 1 inh inhalation QID PRN (Reason: shortness of breath or wheezing) 30 Days Qty: 8.5 0RF prednisone 20 mg tablet See Rx Instructions .ROUTE .COMPLEX 9 Days Qty: 18 0RF Rx Instructions: 20 mg orally, Take 3 tablets for 3 days THEN; Take 2 tablets for 3 days THEN; Take 1 tablet for 3 days prednisone 20 mg tablet 40 mg PO DAILY 5 Days Qty: 10 0RF albuterol sulfate 90 mcg/actuation HFA aerosol inhaler 2 puff inhalation Q4-6H PRN (Reason: shortness of breath or wheezing) Qty: 6.7 0RF albuterol sulfate 2.5 mg/0.5 mL solution for nebulization 5 mg inhalation Q4H PRN (Reason: shortness of breath or wheezing) Qty: 30 0RF albuterol sulfate 90 mcg/actuation HFA aerosol inhaler 2 inh inhalation Q4-6H PRN (Reason: shortness of breath or wheezing) Qty: 6.7 0RF albuterol sulfate 2.5 mg /3 mL (0.083 %) solution for nebulization 2.5 mg inhalation Q4H PRN (Reason: shortness of breath or wheezing) Qty: 75 0RF sertraline 50 mg tablet 50 mg PO DAILY metformin 500 mg tablet extended release 24 hr 500 mg PO DAILY hydroxyzine HCl 10 mg tablet 10 mg PO BEDTIME Pulmicort Flexhaler 90 mcg/actuation aerosol powdr breath activated inhalation amlodipine 2.5 mg tablet 2.5 mg PO DAILY Stand Alone Forms: Work/School Release Print Language: Kazakh
[2025-03-26 18:35] VITALS: BP 126/80; PULSE 67; RESP 16; TEMP 36.3; O2SAT 98
[2025-03-26 19:32] VITALS: BP 126/80; PULSE 67; RESP 16; TEMP 36.3; O2SAT 98
== END 2025-03-26 19:39 | disposition home or self-care (01) ==
PROVIDERS: Emergency Provider Emergency Medicine Emergency Medical Services
DX: M54.50 Low back pain, unspecified (principal); M62.830 Muscle spasm of back; M54.6 Pain in thoracic spine; F17.210 Nicotine dependence, cigarettes, uncomplicated; Z79.899 Other long term (current) drug therapy
CPT/HCPCS: 72070; 72100; 96372; 99283; 99284; J1885

== ENCOUNTER → 2025-03-26 14:15 | Outpatient (BNV) | payer OTHER, SELFPAY | PROVIDERS: Visit Provider Radiology Diagnostic Radiology | DX: M54.50 Low back pain, unspecified (principal); M54.6 Pain in thoracic spine | CPT/HCPCS: 72070; 72100 ==

== ENCOUNTER 2025-07-29 17:23 | Emergency (ER) | payer SELFPAY ==
[2025-07-29 17:32] VITALS: BP 149/77; PULSE 76; RESP 16; TEMP 36.8; O2SAT 100; BMI 41.0
--- NOTE | 2025-07-29 17:34 | ED.EAR ---
HPI - Ear Problem General Chief complaint: Ear Problems Stated complaint: rt ear lump/swollen and painful Time Seen by Provider: 07/29/25 22:02 Source: patient Limitations: no limitations History of Present Illness ED Provider: Stephanie Lennon PA-C HPI Narrative: 39-year-old female with a history of morbid obesity, diabetes, hypertension, asthma, anxiety and depression who presents with infection of right earlobe. Patient states she has had piercings in the right lobe, over the past few days, she has developed swelling, redness and extreme pain. Denies fever. Denies active drainage from the site. Related Data Home Medications ?Medication ?Instructions ?Recorded ?Confirmed amlodipine 2.5 mg tablet 2.5 mg PO DAILY 11/28/24 12/02/24 budesonide 90 mcg/actuation breath inhalation 11/28/24 12/02/24 activated powder inhaler (Pulmicort Flexhaler) hydroxyzine HCl 10 mg tablet 10 mg PO BEDTIME 11/28/24 12/02/24 metformin 500 mg tablet,extended 500 mg PO DAILY 11/28/24 12/02/24 release 24 hr sertraline 50 mg tablet 50 mg PO DAILY 11/28/24 12/02/24 Previous Rx's ?Medication ?Instructions ?Recorded albuterol sulfate 2.5 mg/3 mL 2.5 mg (3 mL) inhalation Q4H PRN 12/31/23 (0.083 %) solution for nebulization shortness of breath or wheezing #75 mL albuterol sulfate 90 mcg/actuation 2 inh inhalation Q4-6H PRN 12/31/23 aerosol inhaler shortness of breath or wheezing #6.7 grams fluticasone 100 mcg-salmeterol 50 1 inh inhalation BID #60 ea 02/04/24 mcg/dose blistr powdr for inhalation (Advair Diskus) albuterol sulfate 2.5 mg/3 mL 2.5 mg (3 mL) inhalation Q6H #90 mL 01/05/25 (0.083 %) solution for nebulization albuterol sulfate 90 mcg/actuation 1 inh inhalation QID PRN shortness 01/05/25 aerosol inhaler (Ventolin HFA) of breath or wheezing 30 days #8.5 grams prednisone 20 mg tablet See Rx Instructions .Route 01/05/25 .COMPLEX 9 days #18 tabs albuterol sulfate 2.5 mg/0.5 mL 5 mg inhalation Q4H PRN shortness 01/25/25 solution for nebulization of breath or wheezing #30 ea albuterol sulfate 90 mcg/actuation 2 puff inhalation Q4-6H PRN 01/25/25 aerosol inhaler shortness of breath or wheezing #6.7 grams prednisone 20 mg tablet 40 mg (2 x 20 mg) PO DAILY 5 days 01/25/25 #10 tabs acetaminophen 500 mg tablet 500 - 1,000 mg (1 - 2 x 500 mg) PO 03/26/25 (Tylenol Extra Strength) Q6H PRN pain #30 tabs ibuprofen 600 mg tablet 600 mg PO Q6H PRN pain #30 tabs 03/26/25 lidocaine 5 % topical patch 1 patch topical DAILY #30 ea 03/26/25 methocarbamol 750 mg tablet 750 mg PO TID 3 days #9 tabs 03/26/25 prednisone 20 mg tablet 40 mg (2 x 20 mg) PO DAILY 4 days 03/26/25 #8 tabs doxycycline hyclate 100 mg capsule 100 mg PO BID #13 caps 07/30/25 Allergies Allergy/AdvReac Type Severity Reaction Status Date / Time morphine Allergy Itching Verified 07/29/25 17:35 Review of Systems Review of Systems: Yes all other systems are reviewed and are negative Constitutional: Constitutional: Denies fatigue, Denies fever(s) and Denies headache(s) ENT: Denies otalgia and Denies headache(s) Cardiovascular: Cardiovascular: Denies chest pain and Denies dyspnea Respiratory: Respiratory: Denies cough and Denies dyspnea Gastrointestinal: Gastrointestinal: Denies nausea and Denies vomiting Neurologic: Denies headache(s) Endocrine: Endocrine: Denies fatigue [facility] Past Medical History Attestation statement: The following information was validated with the patient. Medical History Anxiety Depression Hypertension Asthma Non-insulin dependent type 2 diabetes mellitus Morbid obesity Surgical History History of section Social History Social History Alcohol intake: current Alcohol intake frequency: holidays/special occasions only Patient Tobacco Use Status: Current someday Tobacco user Use of substances other than those prescribed or required for medical reasons: No Substance Use Type: Marijuana Advance Directives: No Advance Directives Information Provided: No Do you have a plan to hurt others: No Plan Physical Exam Vital Signs: Vital Signs: Last Vital Signs Temp 98.1 F 07/30/25 01:39 Pulse 73 07/30/25 01:39 Resp 14 07/30/25 01:39 BP 128/81 07/30/25 01:39 Pulse Ox 98 07/30/25 01:39 O2 Del Method Room Air 07/30/25 01:39 BMI result Body Mass Index 41.0 Const: Other: Alert Orientation/consciousness: patient oriented x3 HEENT: Other: Tender fluctuant swelling posterior right earlobe, no active drainage, overlying erythema and warmth, does not involve the mastoid Resp: Effort & Inspection: normal respiratory effort Cardio: Other: Normal peripheral perfusion Skin: Other: Warm dry no rash Neuro: General: patient oriented x3, gait normal, no focal motor deficits and CN's II-XI intact bilaterally Psych: Other: Cooperative Course Course Course Narrative: This is a RME preformed in triage by Samra Siddiqui PA-C. Date: 07/29/25, time?535 pm. Patient presents with right ear lobe swelling. Tamanna is a 39 y/o female who presents with a rapidly enlarging painful lesion behind the right ear. She first noted mild discomfort in the area three days ago. The next morning she awoke to a palpable bump that has continued to increase in size. Today coworkers noticed the swelling and expressed concern. She applied a warm compress on the first night with no improvement. She reports associated swelling, pain, and a sensation that her ear canal becomes clogged. She had a similar lesion in the same location previously (scar noted). She denies fever or other systemic symptoms. She reports a recent self-reported weight of 278 lbs. She states her blood pressure has been ?higher? but provides no specific values. Review of Systems: Constitutional: Denies fever. ENT: Reports painful swelling behind right ear with shooting pain and intermittent ear canal obstruction. Denies known middle or external ear infection. PE: abscess right posterior ear lobe flucuant, 2cm x 1cm, no head, no mastoiditis, EAM patent, no AOM/AOE Work UP:?no labs, requires I and D Will defer full ROS and PE to treating provider. Patient will continued to be monitored in the interim. Medications Administered Discontinued Medications Generic Name Dose Route Start Last Admin Trade Name Garrett PRN Reason Stop Dose Admin Diphenhydramine HCl 25 mg 07/29/25 22:56 07/29/25 23:01 Diphenhydramine Hcl 50 Mg/Ml Vial IVPUSH 07/29/25 22:57 25 mg ONCE ONE Administration Doxycycline Monohydrate 100 mg 07/29/25 23:40 07/29/25 23:59 Doxycycline Monohydrate 100 Mg Capsule PO 07/29/25 23:41 100 mg ONCE ONE Administration Ketorolac Tromethamine 15 mg 07/29/25 23:51 07/29/25 23:59 Ketorolac Tromethamine 15 Mg/Ml Vial IVPUSH 07/29/25 23:52 15 mg ONCE ONE Administration Lidocaine/Epinephrine 10 ml 07/29/25 22:06 07/29/25 22:56 Lidocaine Hcl 1%/Epi 1:100,000 10 Ml Vial INFILTRATI 07/29/25 22:07 10 ml ONCE ONE Administration Midazolam HCl 3 mg 07/29/25 22:06 07/29/25 22:56 Midazolam Hcl 2 Mg/2 Ml Vial IVPUSH 07/29/25 22:07 3 mg ONCE ONE Administration Morphine Sulfate 4 mg 07/29/25 22:06 07/29/25 22:56 Morphine Sulfate 4 Mg/Ml Cartridge IVPUSH 07/29/25 22:07 4 mg ONCE ONE Administration Protocol Procedures Abscess I/D Site: other (Earlobe) Side (if applicable): right Sedation/analgesia: midazolam and other (Morphine) Local Anesthetic: lidocaine 1% and with epi Amount of anesthesia used (mL): 2 Technique: incised with blade and ultrasound guided (EMERGENCY ULTRASOUND [id number] ED Procedures Indication: Incision and Drainage: Right posterior earlobe viewed with bedside ultrasound, images saved, there is a drainable collection. Performed by Stephanie Lennon PA-C 07/30/2025) Amount of fluid expressed (mL): 5 Sent for culture/gram staining?: No Irrigation: Yes Packing used?: none Ultrasound ED POC Ultrasound: EMERGENCY ULTRASOUND REPORT?Ultrasound-Assisted ED Procedures Indication: Incision and Drainage: Right posterior earlobe viewed with bedside ultrasound, images saved, there is a drainable collection. Performed by Stephanie Lennon PA-C 07/30/2025 Medical Decision Making Medical Decision Making MDM Narrative: 39-year-old female with a history of morbid obesity, diabetes, hypertension, asthma, anxiety and depression who presents with infection of right earlobe. Patient states she has had piercings in the right lobe, over the past few days, she has developed swelling, redness and extreme pain. Denies fever. Denies active drainage from the site. Problem: Diabetes History: Per patient I have considered the following differential diagnoses: Om, OE, cellulitis, purulent cellulitis, abscess, mastoiditis Plan: Patient has an abscess that involves earlobe, there was no mastoid involvement, she also has no ear pain to suggest om or OE. I have viewed the site with bedside ultrasound, there was a drainable collection, we will I and D in place on antibiotics. Pre medicating with Versed and morphine, she is extremely anxious and tender. No indication for labs or imaging Differential Diagnosis Differential Diagnoses: The differential diagnosis associated with the presentation includes See MDM Admission/Observation Consideration of admission/observation: Escalation of care including admission/observation considered Not applicable Discharge Plan Discharge Clinical Impression: Abscess of right earlobe Patient Disposition: Home, Self-Care Instructions: Incision and Drainage (ED) Additional Instructions: You had an abscess that was drained. See home care instructions. The area was sealed with surgical glue, the glue will slough off on its own. Take the doxycycline as directed. Follow up with primary care as needed. Prescriptions: New doxycycline hyclate 100 mg capsule 100 mg PO BID Qty: 13 0RF No Action fluticasone propion-salmeterol [Advair Diskus] 100-50 mcg/dose blister with device 1 inh inhalation BID Qty: 60 0RF albuterol sulfate 2.5 mg /3 mL (0.083 %) solution for nebulization 2.5 mg inhalation Q6H Qty: 90 0RF albuterol sulfate [Ventolin HFA] 90 mcg/actuation HFA aerosol inhaler 1 inh inhalation QID PRN (Reason: shortness of breath or wheezing) 30 Days Qty: 8.5 0RF prednisone 20 mg tablet See Rx Instructions .ROUTE .COMPLEX 9 Days Qty: 18 0RF Rx Instructions: 20 mg orally, Take 3 tablets for 3 days THEN; Take 2 tablets for 3 days THEN; Take 1 tablet for 3 days prednisone 20 mg tablet 40 mg PO DAILY 5 Days Qty: 10 0RF albuterol sulfate 90 mcg/actuation HFA aerosol inhaler 2 puff inhalation Q4-6H PRN (Reason: shortness of breath or wheezing) Qty: 6.7 0RF albuterol sulfate 2.5 mg/0.5 mL solution for nebulization 5 mg inhalation Q4H PRN (Reason: shortness of breath or wheezing) Qty: 30 0RF methocarbamol 750 mg tablet 750 mg PO TID 3 Days Qty: 9 0RF prednisone 20 mg tablet 40 mg PO DAILY 4 Days Qty: 8 0RF Rx Instructions: start 03/27/2025 acetaminophen [Tylenol Extra Strength] 500 mg tablet 500 - 1,000 mg PO Q6H PRN (Reason: pain) Qty: 30 0RF lidocaine 5 % adhesive patch,medicated 1 patch topical DAILY Qty: 30 0RF Rx Instructions: leave on most painful area for up to 12 hrs ibuprofen 600 mg tablet 600 mg PO Q6H PRN (Reason: pain) Qty: 30 0RF albuterol sulfate 90 mcg/actuation HFA aerosol inhaler 2 inh inhalation Q4-6H PRN (Reason: shortness of breath or wheezing) Qty: 6.7 0RF albuterol sulfate 2.5 mg /3 mL (0.083 %) solution for nebulization 2.5 mg inhalation Q4H PRN (Reason: shortness of breath or wheezing) Qty: 75 0RF sertraline 50 mg tablet 50 mg PO DAILY metformin 500 mg tablet extended release 24 hr 500 mg PO DAILY hydroxyzine HCl 10 mg tablet 10 mg PO BEDTIME Pulmicort Flexhaler 90 mcg/actuation aerosol powdr breath activated inhalation amlodipine 2.5 mg tablet 2.5 mg PO DAILY Interventions: ED Discharge Assessment Last Done: 07/30/25 01:39 Discharge Date/Time: 07/30/25 01:40 Print Language: Malagasy
[2025-07-29 21:34] VITALS: BP 149/95; PULSE 69; RESP 16; TEMP 36.5; O2SAT 99
--- OUTSIDE RECORDS SUMMARY | 2025-07-29 21:40 | XMS_ITS | Clinical Summary ---
Author Organization [address] [facility] Building Address [address] [place] [address] Phone Care Team Providers Care Utilization Management Manager Name Role Phone Kate Davis DO [...] Date Diagnosed Date Asthma 06/29/2024 Severe obesity 06/29/2024 Weight gain 06/29/2024 Type 2 diabetes mellitus with obesity 08/28/2023 Overview (05/17/2025): 05/17/25 Regulatory IMO Update Anxiety and depression 06/03/2023 Mild intermittent asthma without complication Disease due to severe acute respiratory syndrome coronavirus 2 (SARS-CoV-2) 11/02/2022 Overview (06/29/2024): Problem added by Discern Expert Immunizations Immunization Administration Dates Next Due Influenza Quadravalent, MDCK [...] Date Smoking Tobacco: Every Day Cigarettes 0.5 27.9 Started: 08/17/1997 Smokeless Tobacco: Never Tobacco Cessation:Ready to Q uit: No; Counseling Given: No Alcohol Use Standard Drinks/Week Comments Yes 1 (1 standard drink = 0.6 oz pur e alcohol) Comments No Sex and Gender Information Value Date Recorded Sex Assigned at Not on file Legal Sex Female 9:37 AM EST Gender Identity Not on file Sexual Orientation Not on file Last Filed Vital Signs Vital Sign Reading [...] Cervical Cancer Screening: P ap Smear 2006 HPV Vaccines (1 - 3-dose SCD M series) 2012 Pneumococcal Vaccine: Pediatrics (0 to 5 Years) and At-Risk Patients (6 to 49 Years) (2 of 2 - PCV) 09/23/2019 09/23/2018 Diabetes: Annual GFR (Glomerular Filtration Rate) 01/20/2021 01/21/2020 HIV Screening 07/20/2022 Hepatitis C Screening 07/20/2022 Social Influencers of Health Screening 07/20/2022 Diabetes: Annual Urine Albumin-Creatinine Ratio (uACR) 10/01/2023 Diabetes: Blood Sugar Contro l Test (HGBA1C) 02/26/2024 08/28/2023 Depression Screening 08/17/2024 COVID-19 Vaccine (1 - 2024-2 6 season) 2025 Influenza Vaccine (#1) 2025 , 09/23/2018 Cholesterol Screening (Lipid Panel) 06/05/2028 06/05/2023 DTaP,Tdap,and Td Vaccines (2 - Td or Tdap) 08/28/2033 08/28/2023 RSV Immunization Adult Patients (1 - 1-dose 75+ series) 2060 HIB Vaccines Aged Out No longer eligi [...] Venous blood specimen / Unknown Heena Chen [employer] LAB BLOOD ORDERABLES Final Resul t * Lipid panel (06/05/2023) LDL/HDL Ratio 4 Triglycerides 179 mg/dL Cholesterol 198 mg/dL HDL 47 mg/dL LDL Cholesterol 116 mg/dL Blood Venous blood specimen / Unknown Heena Chen [employer] SAL[employer] LAB BLOOD ORDERABLES Final Resul t from Last 3 Months or Most Recently Relevant to Health Maintenance Insurance [facility] Care Teams Utilization Management Manager Relationship Specialty Start Date End Date Kate Davis DO [address] [place] [address] PCP - General 03/10/23
[2025-07-29] MEDS: Lidocaine HCl 1%/Epi 1:100,000 10 ML VIAL INFILTRATI (22:56)
[2025-07-30 01:36] VITALS: BP 128/81; PULSE 73; RESP 14; TEMP 36.7; O2SAT 98
[2025-07-30 01:39] VITALS: BP 128/81; PULSE 73; RESP 14; TEMP 36.7; O2SAT 98
== END 2025-07-30 01:40 | disposition home or self-care (01) ==
PROVIDERS: Emergency Provider Emergency Medicine Emergency Medical Services
DX: H60.01 Abscess of right external ear (principal)
CPT/HCPCS: 10120; 96374; 96375; 99284; J1200; J1885; J2004; J2250; J2270